=== PATIENT | male | born 1960 | race Caucasian/White ===

== ENCOUNTER 2018-01-29 13:44 | Emergency (ER) | payer MEDICAID ==
--- NOTE | 2018-01-29 16:22 | ED Physician Chart ---
ED Chief Complaint/HPI - Patient Information Date Seen:: 01/29/18 Time Seen:: 14:10 Chief Complaint:: Feet Redness History of Present Illness:: onset x one week of bilateral feet redness; pt denies trauma; pt's last tetanus shot: < 5 years; UTD; pt denies H/As, S/T, neck pain, C/P, SOB, Abd. Pain, A/N/V /D/C, fever, chills, or urinary s/s; pt denies foot pain, back pain, or hip/ knee pain; no gait changes Allergies:: Allergies Allergy/AdvReac Type Severity Reaction Status Date / Time No Known Allergies Allergy Verified 08/16/16 15:09 Vitals:: Vital Signs - 8 hr 01/29/18 14:12 Temp 99.4 F HR 91 RR 16 BP 118/61 O2 Sat % 98 Historian:: Patient, EMS Review:: Nurse's Note Reviewed, Old Chart Reviewed, EMS run form Reviewed ED Review of Systems - Review of Systems General/Constitutional: No fever, No chills, No weight loss, No weakness, No diaphoresis, No edema, No loss of appetite Skin: No skin lesions, No rash, No bruising Head: No headache, No light-headedness Eyes: No loss of vision, No pain, No diplopia ENT: No earache, No nasal drainage, No sore throat, No tinnitus Neck: No neck pain, No swelling, No thyromegaly, No stiffness, No mass noted Cardio Vascular: No chest pain, No palpitations, No PND, No orthopnea, No edema Pulmonary: No SOB, No cough, No sputum, No wheezing GI: No nausea, No vomiting, No diarrhea, No pain, No melena, No hematochezia, No constipation, No hematemesis G/U: No dysuria, No frequency, No hematuria, No nacturia Musculoskeletal: No bone or joint pain, No back pain, No muscle pain Endocrine: No polyuria, No polydipsia Psychiatric: No prior psych history, No depression, No anxiety, No suicidal ideation, No homicidal ideation, No auditory hallucination, No visual hallucination Hematopoietic: No bruising, No lymphadenopathy Allergic/Immuno: No urticaria, No angioedema Neurological: No syncope, No focal symptoms, No weakness, No paresthesia, No headache, No seizure, No dizziness, No confusion, No vertigo ED Past Medical History - Past Medical History Obtainable: Yes Past Medical History: No significant medical hx Family History: None Social History: Non Smoker, No Alcohol, No Drug Use, Single, Homeless Surgical History: None Psychiatricy History: None Medication: Reviewed Family Medical History - Family Member Mother History Unknown: Yes Ethnicity: Living Status: Unknown Hx Family Cancer: No Hx Family Coronary Artery Disease: No Hx Family Congestive Heart Failure: No Hx Family Hypertension: Yes Hx Family Stroke: No Hx Family Diabetes: No Hx Family Seizures: No Hx Family Dementia: No Hx Family AIDS: No Hx Family HIV: No Hx Family COPD: No Hx Family Hepatitis: No Hx Family Psychiatric Problems: No Hx Family Tuberculosis: No ED Physical Exam - Physical Examination General/Constitutional: Awake, Well-developed, well-nourished, Alert, No distress, GCS 15, Non-toxic appearing, Ambulatory Head: Atraumatic Eyes: Lids, conjuctiva normal, PERRL, EOMI Skin: Nl inspection, No rash, No skin lesions, No ecchymosis, Well hydrated, No lymphadenopathy Other Skin comments:: Bilateral Feet Cellulitis; no wounds; no FBs; good NV functions ENMT: External ears, nose nl, TM canals nl, Nasal exam nl, Lips, teeth, gums nl , Oropharynx nl, Tonsils nl Neck: Nontender, Full ROM w/o pain, No JVD, No nuchal rigidity, No bruit, No mass, No stridor Other Neck comments:: supple; no meningeal signs; no cervical tenderness; no bruits Respiratory: Nl effort/Exclusion, Clear to Auscultation, No Wheeze/Rhonchi/Rales Cardio Vascular: RRR, No murmur, gallop, rubs, NL S1 S2, Carotid/Femoral/Distal pulses equal bilaterally GI: No tenderness/rebounding/guarding, No organomegaly, No hernia, Normal BS's, Nondistended, No mass/bruits, No McBurney tenderness, Rectum exam nl Other GI comments:: no pulsatile masses : No CVA tenderness Extremities: No tenderness or effusion, Full ROM, normal strength in all extremities, No edema, Normal digits & nails Other Extremities comments:: Gait: WNL; good motor, tendon, and sensory functions; good NV functions Neuro/Psych: Alert/oriented, DTR's symmetric, Normal sensory exam, Normal motor strength, Judgement/insight normal, Mood normal, Normal gait, No focal deficits Misc: Normal back, No paraspinal tenderness ED Septic Shock - . Is Septic Shock (SBP<90, OR Lactate>4 mmol\L) present?: No - <6hrs of presentation: Vital Signs: Vital Signs - 8 hr 01/29/18 14:12 Temp 99.4 F HR 91 RR 16 BP 118/61 O2 Sat % 98 ED Reassessment (Disposition) - Reassessment Reassessment:: pt tolerated po fluids well in ER; pt is asymptomatic upon discharge Reassessment Condition:: Improved - Diagnosis Diagnosis:: Feet Cellulitis; Feet Redness; Localized Cellulitis - Aftercare/Follow up Instructions Aftercare/Follow-Up Instructions:: Counseled pt regarding lab results/diagnosis & need follow up, Refer to Discharge Instructions, Counseled pt & family regarding lab results/diagnosis & need follow up Medication Prescribed:: Rx: keflex 500mg po qid x 10 days; warm Compresses to both feet; Foot/ Cellulitis Care instructions - Patient Disposition Discharge/Transfer:: Home Condition at Disposition:: Stable, Improved (RTER prn if existing s/s reoccur and/or get worse and/or any other new s/s occur; take medications as prescribed ; ACIs given for all above Dx; refer to Senior Php Web Developer/Director College/Vascular Surgeon/ Chyron Operator MAK; F/U with PMD in one day or prn; RTER prn if concerned)
== END 2018-01-29 17:15 | disposition home or self-care (01) ==
LOC: ER 13:44
DX: L03.115 Cellulitis of right lower limb (principal); L03.116 Cellulitis of left lower limb; Z59.0 Homelessness
CPT/HCPCS: 99283; 96372; J0696; Z7502

== ENCOUNTER 2018-09-09 18:13 | Inpatient (IN) | payer MEDICAID ==
[2018-09-09 19:06] LABS: BASOPHILE ABSOLUTE 0.1 Th/cumm (0-0.2); EOSINOPHILE ABSOLUTE 0.1 Th/cmm (0.1-0.4); HEMOGLOBIN 11.6 gm/dL (12-16); MEAN CELL VOLUME 99.8 fl (80-99); MEAN CORPUSCULAR HEMOGLOBIN 33.1 pg (26.0-30.0); MEAN CORPUSCULAR HGB CONC 33.2 pg (28.0-36.0); MEAN PLATELET VOLUME 9.5 fl; NEUTROPHILE ABSOLUTE 3.3 Th/cmm (1.8-8.0); PLATELET COUNT 60 Th/cmm (150-400); RED BLOOD COUNT 3.51 Mil/cmm (4.30-5.70); RED CELL DISTRIBUTION WIDTH 12.5 % (11.5-20.0); WHITE BLOOD COUNT 6.5 Th/cmm (4.8-10.8)
[2018-09-09 19:12] LABS: % BASOPHILS 1.2 % (0.0-2.0); % LYMPHOCYTES 30.1 % (20.0-50.0); % MONOCYTES 15.9 % (2.0-10.0); % NEUTROPHILS 50.8 % (40.0-80.0)
[2018-09-09 19:22] LABS: ALBUMIN 3.6 gm/dL (4.2-5.5); ALKALINE PHOSPHATASE 127 U/L (34-104); AMYLASE SERUM 88 U/L (29-103); ANION GAP 12.9 (7.0-16.0); BILIRUBIN,TOTAL 0.8 mg/dL (0.3-1.0); BUN - UREA NITROGEN 13 mg/dL (7-25); CALCIUM SERUM 8.8 mg/dL (8.6-10.3); CARBON DIOXIDE 21.7 mEq/L (21.0-31.0); CHLORIDE 99 mEq/L (98-107); CREATININE - SERUM 0.8 mg/dL (0.7-1.3); GFR AFRICAN-AMERICAN > 60.0 ml/min (>90); GFR NON AFRICAN-AMERICAN > 60.0 ml/min; GLUCOSE 97 mg/dL (70-105); LIPASE 63 U/L (11-82); PHOSPHOROUS 2.9 mg/dL (2.5-5.0); POTASSIUM SERUM 3.6 mEq/L (3.5-5.1); SGOT 96 U/L (13-39); SGPT/ALT 47 U/L (7-52); SODIUM SERUM 130 mEq/L (136-145); TOTAL PROTEIN,SERUM 7.3 gm/dL (6.0-8.3)
[2018-09-09 20:48] LABS: AMPHETAMINE URINE NEGATIVE (NEGATIVE); BARBITURATES URINE NEGATIVE (NEGATIVE); BENZODIAZEPINES QUAL URINE NEGATIVE (NEGATIVE); CANNABINOID THC NEGATIVE (NEGATIVE); COCAINE METABOLITE QUAL URINE NEGATIVE (NEGATIVE); METHADONE URINE NEGATIVE (NEGATIVE); METHAMPHETAMINES QUAL URINE NEGATIVE (NEGATIVE); OPIATES (MORPHINE) QUAL. URINE NEGATIVE (NEGATIVE); PHENCYCLIDINE (PCP) URINE NEGATIVE (NEGATIVE); TRICYCLICS (TCA) QUAL. URINE NEGATIVE (NEGATIVE)
--- NOTE | 2018-09-09 20:53 | ED Physician Chart ---
ED Chief Complaint/HPI - Patient Information Date Seen:: 09/09/18 Time Seen:: 20:45 Chief Complaint:: diarhea History of Present Illness:: 57 yr old male with 3 day hx of diarhea Allergies:: Allergies Allergy/AdvReac Type Severity Reaction Status Date / Time No Known Allergies Allergy Verified 06/24/17 21:09 Vitals:: Vital Signs - 8 hr 09/09/18 18:39 Temp 98.1 F HR 92 RR 18 BP 117/60 O2 Sat % 100 ED Review of Systems - Review of Systems General/Constitutional: No fever Skin: No skin lesions Head: No headache Eyes: No loss of vision ENT: No earache Neck: No neck pain Cardio Vascular: No chest pain Pulmonary: No SOB GI: Diarrhea G/U: No dysuria Musculoskeletal: No bone or joint pain Endocrine: No polyuria Hematopoietic: No bruising Allergic/Immuno: No urticaria ED Past Medical History - Past Medical History Past Medical History: Other (etoh) Family Medical History - Family Member Mother History Unknown: Yes Ethnicity: Non- Hx Family Cancer: No Hx Family Coronary Artery Disease: No Hx Family Congestive Heart Failure: No Hx Family Hypertension: No Hx Family Stroke: No Hx Family Diabetes: No Hx Family Seizures: No Hx Family Dementia: No Hx Family AIDS: No Hx Family HIV: No Hx Family COPD: No Hx Family Hepatitis: No Hx Family Psychiatric Problems: No Hx Family Tuberculosis: No ED Physical Exam - Physical Examination General/Constitutional: Well-developed, well-nourished Head: Atraumatic Eyes: Lids, conjuctiva normal Skin: Nl inspection ENMT: External ears, nose nl Neck: Nontender Respiratory: Nl effort/Exclusion Cardio Vascular: RRR, No murmur, gallop, rubs GI: No tenderness/rebounding/guarding : No CVA tenderness Extremities: Full ROM Neuro/Psych: Alert/oriented Misc: Normal back ED Labs/Radiology/EKG Results - Lab Results Results: Laboratory Tests 09/09/18 09/09/18 18:45 18:45 WBC 6.5 RBC 3.51 L Hgb 11.6 L Hct 35.0 L MCV 99.8 H MCH 33.1 H MCHC Differential 33.2 RDW 12.5 Plt Count 60 L MPV 9.5 Add Manual Diff YES Neutrophils % 50.8 Lymphocytes % 30.1 Monocytes % 15.9 H Eosinophils % 2.0 Basophils % 1.2 Neutrophils (Manual) Not Reportable Sodium 130 L Potassium 3.6 Chloride 99 Carbon Dioxide 21.7 Anion Gap 12.9 BUN 13 Creatinine 0.8 Est GFR ( Amer) > 60.0 Est GFR (Non-Af Amer) > 60.0 BUN/Creatinine Ratio 16.3 Glucose 97 Calcium 8.8 Phosphorus 2.9 Magnesium 2.0 Total Bilirubin 0.8 AST 96 H ALT 47 Alkaline Phosphatase 127 H Total Protein 7.3 Albumin 3.6 L Globulin 3.7 Albumin/Globulin Ratio 1.0 Amylase 88 Lipase 63 Ethyl Alcohol 356 H ED Septic Shock - . Is Septic Shock (SBP<90, OR Lactate>4 mmol\L) present?: No - <6hrs of presentation: Vital Signs: Vital Signs - 8 hr 15/18 18:39 Temp 98.1 F HR 92 RR 18 BP 117/60 O2 Sat % 100 ED Reassessment (Disposition) - Reassessment Reassessment Condition:: Improved - Diagnosis Diagnosis:: diarhea - Patient Disposition Discharge/Transfer:: Home Condition at Disposition:: Improved
[2018-09-09 22:05] LABS: CHOLESTEROL 178 mg/dL (<200); HDL -HIGH DENSITY LIPOPROTEIN 86 mg/dL (23-92); TRIGLYCERIDES 64 mg/dL (<150)
[2018-09-09 23:18] VITALS: BP 101/59
[2018-09-10] MEDS: Sodium Chloride 0.9% 1,000 ML IV SCH ×3 (00:56→17:45)
[2018-09-10 05:10] LABS: % BASOPHILS 1.6 % (0.0-2.0); % LYMPHOCYTES 24.7 % (20.0-50.0); % MONOCYTES 12.9 % (2.0-10.0); % NEUTROPHILS 57.8 % (40.0-80.0); BASOPHILE ABSOLUTE 0.1 Th/cumm (0-0.2); EOSINOPHILE ABSOLUTE 0.2 Th/cmm (0.1-0.4); HEMATOCRIT 34.9 % (41.0-60); LYMPHOCYTE ABSOLUTE 1.4 Th/cmm (1.5-3.0); MEAN CELL VOLUME 98.8 fl (80-99); MEAN CORPUSCULAR HGB CONC 34.4 pg (28.0-36.0); MEAN PLATELET VOLUME 9.2 fl; MONOCYTE ABSOLUTE 0.7 Th/cmm (0.3-1.0); NEUTROPHILE ABSOLUTE 3.2 Th/cmm (1.8-8.0); PLATELET COUNT 55 Th/cmm (150-400); RED BLOOD COUNT 3.54 Mil/cmm (4.30-5.70); RED CELL DISTRIBUTION WIDTH 12.4 % (11.5-20.0); WHITE BLOOD COUNT 5.6 Th/cmm (4.8-10.8)
[2018-09-10] MEDS: metroNIDAZOLE 500mg/NS 100mL 500 MG/100 ML BAG IV SCH ×3 (05:28→21:30)
[2018-09-10 05:35] LABS: ANION GAP 12.8 (7.0-16.0); BUN - UREA NITROGEN 10 mg/dL (7-25); CALCIUM SERUM 8.2 mg/dL (8.6-10.3); CARBON DIOXIDE 22.5 mEq/L (21.0-31.0); CHLORIDE 106 mEq/L (98-107); CHOLESTEROL 169 mg/dL (<200); CREATININE - SERUM 0.5 mg/dL (0.7-1.3); GFR AFRICAN-AMERICAN > 60.0 ml/min (>90); GFR NON AFRICAN-AMERICAN > 60.0 ml/min; GLUCOSE 87 mg/dL (70-105); HDL -HIGH DENSITY LIPOPROTEIN 80 mg/dL (23-92); POTASSIUM SERUM 3.3 mEq/L (3.5-5.1); SODIUM SERUM 138 mEq/L (136-145); TRIGLYCERIDES 41 mg/dL (<150)
[2018-09-10 12:43] LABS: CHOLESTEROL 173 mg/dL (<200); HDL -HIGH DENSITY LIPOPROTEIN 79 mg/dL (23-92); TRIGLYCERIDES 42 mg/dL (<150)
--- NOTE | 2018-09-10 14:19 | Consultation ---
Consult Note - Consult Note Service Date: 09/10/18 Referring Physician: Jordyn Odom Consult Note: PHYSICIAN Consultation Note: Date of Admission: 09/09/18 Purpose of Consultation: Diarrhea, AGE. Chief Complaint: Patient COLBY THOMAS was admitted to location Medical/ Surgical Unit I with DIARRHEA, HYPONATREMIA. History of Present Illness: 56-year-old male with no significant past medical history of presented for diarrhea. He stated that he was [place] [address] , [facility] were called and he was offered to go to jail or Hospital. He chose to go to the hospital. He had developed diarrhea, and it is improved now. ID consult was called for evaluation and management. Past Medical History: Alcohol abuse. Allergies Allergy/AdvReac Type Severity Reaction Status Date / Time No Known Allergies Allergy Verified 09/10/18 13:56 Vital Signs Temp 98.8 F 09/10/18 11:47 Pulse 70 09/10/18 11:47 Resp 18 09/10/18 11:47 BP 118/77 09/10/18 11:47 Pulse Ox 99 09/10/18 11:47 Intake & Output 09/09/18 09/10/18 09/10/18 18:59 06:59 18:59 Intake Total 100 1000 Output Total 300 Balance -200 1000 Weight (lbs) 66.224 kg 66.224 kg Intake: Intake, IV Amount 100 1000 Sodium Chloride 0.9% 1, 1000 000 ml @ 125 mls/hr IV . Q8H [facility] Rx#:[id number] metroNIDAZOLE 500mg/NS 100 100mL 500 mg In 100 ml @ 100 mls/hr IV Q8HR [facility] Rx #:[id number] Output: Urine 300 Other: Weight Source Patient stated [facility] Laboratory Results - last 24 hr 09/09/18 09/09/18 09/09/18 18:45 18:45 18:45 WBC 6.5 RBC 3.51 L Hgb 11.6 L Hct 35.0 L MCV 99.8 H MCH 33.1 H MCHC Differential 33.2 RDW 12.5 Plt Count 60 L MPV 9.5 Add Manual Diff YES Neutrophils % 50.8 Lymphocytes % 30.1 Monocytes % 15.9 H Eosinophils % 2.0 Basophils % 1.2 Neutrophils (Manual) Not Reportable Sodium 130 L Potassium 3.6 Chloride 99 Carbon Dioxide 21.7 Anion Gap 12.9 BUN 13 Creatinine 0.8 Est GFR ( Amer) > 60.0 Est GFR (Non-Af Amer) > 60.0 BUN/Creatinine Ratio 16.3 Glucose 97 Calcium 8.8 Phosphorus 2.9 Magnesium 2.0 Total Bilirubin 0.8 AST 96 H ALT 47 Alkaline Phosphatase 127 H Total Protein 7.3 Albumin 3.6 L Globulin 3.7 Albumin/Globulin Ratio 1.0 Triglycerides 64 Cholesterol 178 LDL Cholesterol Direct 65 L HDL Cholesterol 86 Amylase 88 Lipase 63 TSH Urine Opiates Screen Urine Methadone Screen Ur Barbiturates Screen Ur Tricyclics Screen Ur Phencyclidine Scrn Amphetamines Screen U Methamphetamines Scrn U Benzodiazepines Scrn U Cocaine Metab Screen U Cannabinoids Screen Ethyl Alcohol 356 H 09/09/18 09/10/18 09/10/18 20:25 05:00 05:00 WBC 5.6 RBC 3.54 L Hgb 12.0 Hct 34.9 L MCV 98.8 MCH 34.0 H MCHC Differential 34.4 RDW 12.4 Plt Count 55 L MPV 9.2 Add Manual Diff Neutrophils % 57.8 Lymphocytes % 24.7 Monocytes % 12.9 H Eosinophils % 3.0 Basophils % 1.6 Neutrophils (Manual) Sodium 138 Potassium 3.3 L Chloride 106 Carbon Dioxide 22.5 Anion Gap 12.8 BUN 10 Creatinine 0.5 L Est GFR ( Amer) > 60.0 Est GFR (Non-Af Amer) > 60.0 BUN/Creatinine Ratio 20.0 Glucose 87 Calcium 8.2 L Phosphorus Magnesium Total Bilirubin AST ALT Alkaline Phosphatase Total Protein Albumin Globulin Albumin/Globulin Ratio Triglycerides 41 Cholesterol 169 LDL Cholesterol Direct 62 L HDL Cholesterol 80 Amylase Lipase TSH Urine Opiates Screen NEGATIVE Urine Methadone Screen NEGATIVE Ur Barbiturates Screen NEGATIVE Ur Tricyclics Screen NEGATIVE Ur Phencyclidine Scrn NEGATIVE Amphetamines Screen NEGATIVE U Methamphetamines Scrn NEGATIVE U Benzodiazepines Scrn NEGATIVE U Cocaine Metab Screen NEGATIVE U Cannabinoids Screen NEGATIVE Ethyl Alcohol 09/10/18 09/10/18 05:00 12:29 WBC RBC Hgb Hct MCV MCH MCHC Differential RDW Plt Count MPV Add Manual Diff Neutrophils % Lymphocytes % Monocytes % Eosinophils % Basophils % Neutrophils (Manual) Sodium Potassium Chloride Carbon Dioxide Anion Gap BUN Creatinine Est GFR ( Amer) Est GFR (Non-Af Amer) BUN/Creatinine Ratio Glucose Calcium Phosphorus Magnesium Total Bilirubin AST ALT Alkaline Phosphatase Total Protein Albumin Globulin Albumin/Globulin Ratio Triglycerides 42 Cholesterol 173 LDL Cholesterol Direct 64 L HDL Cholesterol 79 Amylase Lipase TSH 3.19 Urine Opiates Screen Urine Methadone Screen Ur Barbiturates Screen Ur Tricyclics Screen Ur Phencyclidine Scrn Amphetamines Screen U Methamphetamines Scrn U Benzodiazepines Scrn U Cocaine Metab Screen U Cannabinoids Screen Ethyl Alcohol Home Medication Medication Instructions Recorded Type NK [No Home Meds] 04/16/17 History NK [No Home Meds] 09/09/18 History Current Medications Generic Name Dose Route Start Last Admin Trade Name Jeremy PRN Reason Stop Dose Admin Acetaminophen 650 mg 09/09/18 21:41 09/10/18 14:06 Tylenol PO 11/08/18 21:40 650 mg Q4HR PRN Administration PAIN/FEVER Metronidazole 500 mg in 100 mls @ 100 mls/hr 09/10/18 05:00 09/10/18 12:07 Flagyl IV 11/09/18 04:59 100 mls/hr Q8HR [facility] Administration Sodium Chloride 1,000 mls @ 125 mls/hr 09/09/18 21:45 09/10/18 09:04 Nacl 0.9% IV 11/08/18 21:44 125 mls/hr .Q8H [facility] Administration Review of Systems: A 12 point ROS was reviewed with the pertinent positive and negatives noted in the HPI. General/Constitutional: No fever Skin: No skin lesions Head: No headache Eyes: Notable diplopia and no photophobia. ENT: No earache, no ear discharge Neck: No neck pain Cardio Vascular: No chest pain, no palpitation. No leg edema or swelling Pulmonary: No SOB, no cough. No wheezing. GI: Presented with Diarrhea, no nausea no vomiting no constipation no diarrhea no G/U: No dysuria, no hematuria Musculoskeletal: No bone or joint pain Endocrine: No polyuria Hematopoietic: No bruising Allergic/Immuno: No urticaria. ART THERAPY CERTIFIED SUPERVISOR: No headache, no dizziness, no focal process. No seizure. Social History Homeless. Smoking Status Current every day smoker Drug Use No Alcohol Use No Family Medical History Unknown. Physical Exam: General: A febrile, Acute distress. HEENT: Head: Normocephalic, atraumatic. Oral cavity: Moist, pink tongue. Neck: Supple, no JVD or bruit. No Use of accessory neck muscles. Cardio: S1 and S2 within normal limits. No murmur no gallop. Respiratory: Vesicular breath sound. No crackles no wheezing. Abdominal: Soft, nontender nondistended bowel sounds present Genital/Urinary: Deferred Extremities: No cyanosis, no clubbing no edema. There is a dry skin. Neurological: Alert, awake, oriented 3. Assessment: 1. Diarrhea, improved. Acute gastroenteritis improved. Might be viral. 2. Alcohol abuse. Plan: As patient's diarrhea has improved. No further intervention. Continue Flagyl.. Follow-up as outpatient basis. Thank you, Dr. Odom, for involving me in taking care of this patient Signed, Stanley Boogie M.D. [id number]
[2018-09-10] MEDS ORDERED: Potassium Chloride 20 mEq ER Tab PO ONE (14:59)
--- NOTE | 2018-09-10 18:42 | History & Physical ---
ADMIT DATE: 09/10/2018 CHIEF COMPLAINT: Diarrhea, trouble with ambulation. HISTORY OF PRESENT ILLNESS: This is a 57-year-old homeless male who was admitted to the med/surg unit. According to the patient, a few days ago when it was raining hard, the patient states that his socks were drenched with water and he started to develop blisters and the patient states that he has been having trouble walking due to the blisters that he develops. The patient also complains of having diarrhea as well. FAMILY HISTORY: None per patient. SOCIAL HISTORY: The patient is a chronic alcoholic. Denies any illicit drug usage. The patient states that he smokes cigarettes when he gets a chance. PAST SURGICAL HISTORY: None per patient. FAMILY HISTORY: Noncontributory. REVIEW OF SYSTEMS: GENERAL: Denies fevers and chills. CARDIOVASCULAR: Denies chest pain. RESPIRATORY: Denies shortness of breath. GASTROINTESTINAL: Denies nausea, vomiting, abdominal pain. GENITOURINARY: Denies increased frequency or dysuria. NEUROLOGIC: Denies headaches, seizures, or syncope. All systems are reviewed and negative. PHYSICAL EXAMINATION: GENERAL: The patient is well developed, well nourished, in no apparent distress, appears disheveled. VITAL SIGNS: Temperature 98.8, heart rate 70, blood pressure 118/77, respiration 18, O2 99%. HEENT: Head; normocephalic, atraumatic. NECK: Supple. No mass. LUNGS: Clear bilaterally. HEART: Regular rate and rhythm. ABDOMEN: Soft, nontender. EXTREMITIES: The patient's bilateral feet noted with some blisters and some excoriations. LABORATORY DATA: WBC 5.6, H and H 12.0 and 34.9, platelets 55. Sodium 138, potassium 3.3, chloride 106, BUN 10, creatinine 0.5. ASSESSMENT: Diarrhea, hyponatremia, homelessness, bilateral foot pain. PLAN: We will admit the patient to the med-surg unit. We will get Infectious Disease on the case. We will send occult for blood, stool culture, also C. diff. Keep the patient on IV fluids for hydration, also empiric IV antibiotics of Flagyl. We will continue to follow this patient. JOB# [id number]
[2018-09-11] MEDS: Sodium Chloride 0.9% 1,000 ML IV SCH (05:57)
[2018-09-11] MEDS: metroNIDAZOLE 500mg/NS 100mL 500 MG/100 ML BAG IV SCH (06:12)
--- NOTE | 2018-09-11 11:48 | Internal Medicine Prog Note ---
Internal Medicine Subjective - Subjective Patient seen and examined:: other (labs reviewed, c/o blister justin feet + diarrhea) Patient is:: awake Patient Complaints of:: other (feet pain ) Per staff patient has:: no adverse event Internal Medicine Objective - Results Result Diagrams: 09/10/18 05:00 09/10/18 05:00 Recent Labs: Laboratory Last Values WBC 5.6 Th/cmm (4.8-10.8) 09/10/18 05:00 RBC 3.54 Mil/cmm (4.30-5.70) L 09/10/18 05:00 Hgb 12.0 gm/dL (12-16) 09/10/18 05:00 Hct 34.9 % (41.0-60) L 09/10/18 05:00 MCV 98.8 fl (80-99) 09/10/18 05:00 MCH 34.0 pg (26.0-30.0) H 09/10/18 05:00 MCHC Differential 34.4 pg (28.0-36.0) 09/10/18 05:00 RDW 12.4 % (11.5-20.0) 09/10/18 05:00 Plt Count 55 Th/cmm (150-400) L 09/10/18 05:00 MPV 9.2 fl 09/10/18 05:00 Add Manual Diff YES 09/09/18 18:45 Neutrophils % 57.8 % (40.0-80.0) 09/10/18 05:00 Lymphocytes % 24.7 % (20.0-50.0) 09/10/18 05:00 Monocytes % 12.9 % (2.0-10.0) H 09/10/18 05:00 Eosinophils % 3.0 % (0.0-5.0) 09/10/18 05:00 Basophils % 1.6 % (0.0-2.0) 09/10/18 05:00 Neutrophils (Manual) Not Reportable 09/09/18 18:45 Sodium 138 mEq/L (136-145) 09/10/18 05:00 Potassium 3.3 mEq/L (3.5-5.1) L 09/10/18 05:00 Chloride 106 mEq/L (98-107) 09/10/18 05:00 Carbon Dioxide 22.5 mEq/L (21.0-31.0) 09/10/18 05:00 Anion Gap 12.8 (7.0-16.0) 09/10/18 05:00 BUN 10 mg/dL (7-25) 09/10/18 05:00 Creatinine 0.5 mg/dL (0.7-1.3) L 09/10/18 05:00 Est GFR ( Amer) > 60.0 ml/min (>90) 09/10/18 05:00 Est GFR (Non-Af Amer) > 60.0 ml/min 09/10/18 05:00 BUN/Creatinine Ratio 20.0 09/10/18 05:00 Glucose 87 mg/dL (70-105) 09/10/18 05:00 Calcium 8.2 mg/dL (8.6-10.3) L 09/10/18 05:00 Phosphorus 2.9 mg/dL (2.5-5.0) 09/09/18 18:45 Magnesium 2.0 mg/dL (1.9-2.7) 09/09/18 18:45 Total Bilirubin 0.8 mg/dL (0.3-1.0) 09/09/18 18:45 AST 96 U/L (13-39) H 09/09/18 18:45 ALT 47 U/L (7-52) 09/09/18 18:45 Alkaline Phosphatase 127 U/L (34-104) H 09/09/18 18:45 Total Protein 7.3 gm/dL (6.0-8.3) 09/09/18 18:45 Albumin 3.6 gm/dL (4.2-5.5) L 09/09/18 18:45 Globulin 3.7 gm/dL 09/09/18 18:45 Albumin/Globulin Ratio 1.0 (1.0-1.8) 09/09/18 18:45 Triglycerides 42 mg/dL (<150) 09/10/18 12:29 Cholesterol 173 mg/dL (<200) 09/10/18 12:29 LDL Cholesterol Direct 64 mg/dL (75-193) L 09/10/18 12:29 HDL Cholesterol 79 mg/dL (23-92) 09/10/18 12:29 Amylase 88 U/L (29-103) 09/09/18 18:45 Lipase 63 U/L (11-82) 09/09/18 18:45 TSH 3.19 uIU/ml (0.34-5.60) 09/10/18 05:00 Stool Occult Blood NEGATIVE (NEGATIVE) 09/10/18 19:45 Urine Opiates Screen NEGATIVE (NEGATIVE) 09/09/18 20:25 Urine Methadone Screen NEGATIVE (NEGATIVE) 09/09/18 20:25 Ur Barbiturates Screen NEGATIVE (NEGATIVE) 09/09/18 20:25 Ur Tricyclics Screen NEGATIVE (NEGATIVE) 09/09/18 20:25 Ur Phencyclidine Scrn NEGATIVE (NEGATIVE) 09/09/18 20:25 Amphetamines Screen NEGATIVE (NEGATIVE) 09/09/18 20:25 U Methamphetamines Scrn NEGATIVE (NEGATIVE) 09/09/18 20:25 U Benzodiazepines Scrn NEGATIVE (NEGATIVE) 09/09/18 20:25 U Cocaine Metab Screen NEGATIVE (NEGATIVE) 09/09/18 20:25 U Cannabinoids Screen NEGATIVE (NEGATIVE) 09/09/18 20:25 Ethyl Alcohol 356 mg/dL (0-10) H 09/09/18 18:45 - Physical Exam Vitals and I&O: Vital Signs Temp 98.6 F 09/11/18 10:40 Pulse 65 09/11/18 10:40 Resp 18 09/11/18 10:40 BP 141/68 09/11/18 10:40 Pulse Ox 98 09/11/18 10:40 Intake & Output 09/10/18 09/11/18 09/11/18 18:59 06:59 18:59 Intake Total 2900 1100 350 Output Total 550 450 Balance 2900 550 -100 Weight (lbs) 62.596 kg 63.73 kg 63.503 kg Intake: Intake, IV Amount 2100 1100 Sodium Chloride 0.9% 1, 2000 1000 000 ml @ 125 mls/hr IV . Q8H [facility] Rx#:[id number] metroNIDAZOLE 500mg/NS 100 100 100mL 500 mg In 100 ml @ 100 mls/hr IV Q8HR [facility] Rx #:[id number] Oral 800 350 Output: Urine 550 450 Other: # Voids 4 2 # Bowel Movements 1 1 Stool Characteristics Soft Liquid Green Brown Weight Source Bedscale Bedscale Bedscale Active Medications: Current Medications Acetaminophen (Tylenol) 650 mg PO Q4HR PRN PRN Reason: PAIN/FEVER Stop: 11/08/18 21:40 Last Admin: 09/11/18 00:11 Dose: 650 mg Metronidazole (Flagyl) 500 mg in 100 mls @ 100 mls/hr IV Q8HR [facility] Stop: 11/09/18 04:59 Last Admin: 09/11/18 06:12 Dose: 100 mls/hr Sodium Chloride (Nacl 0.9%) 1,000 mls @ 125 mls/hr IV .Q8H [facility] Stop: 11/08/18 21:44 Last Admin: 09/11/18 05:57 Dose: 125 mls/hr General: alert HEENT: NC/AT Neck: Supple Lungs: CTAB Cardiovascular: Normal S1, Normal S2 Abdomen: soft, non-tender Extremities: pain, other (blisters on justin foot) Neurological: no change - Procedures Procedures: Procedures Procedure Code Date INJECT/INFUSE NEC 99.29 07/14/14 THER/PROPH/DIAG INJ, SC/IM [id number] 04/11/08 Internal Medicine Assmt/Plan - Assessment Assessment: diarrhea hyponatremia justin foot pain homelessness - Plan Plan: ID eval pain management iv antibiotics iv fluids
== END 2018-09-11 11:45 | disposition home or self-care (01) | DRG 249 ==
LOC: ER 18:13 → MERGE 21:20 → MSI 21:20
PROVIDERS: ADMIT Internal Medicine; ATTEND Internal Medicine
DX: K52.9 Noninfective gastroenteritis and colitis, unspecified (principal); E87.1 Hypo-osmolality and hyponatremia; F10.10 Alcohol abuse, uncomplicated; F17.210 Nicotine dependence, cigarettes, uncomplicated; Y90.8 Blood alcohol level of 240 mg/100 ml or more; M79.672 Pain in left foot; M79.671 Pain in right foot; Z59.0 Homelessness
CPT/HCPCS: 36415-UA; 80048-TC; 80053-TC; 80061-TC; 80307; 80320-TC; 82150-TC; 82270-TC; 83036-90; 83690-TC; 83735-TC; 84100-TC; 84443-TC; 85007-TC; 85025-TC; 87046-90; 87230-TC; 90799; J7030; Z7610

== ENCOUNTER 2019-06-17 14:56 | Emergency (ER) | payer MEDICAID ==
[2019-06-17] MEDS: Sodium Chloride 0.9% 1,000 ML IV ONE (16:09)
[2019-06-17 16:11] LABS: BASOPHILE ABSOLUTE 0.1 Th/cumm (0-0.2); EOSINOPHILE ABSOLUTE 0.1 Th/cmm (0.1-0.4); MONOCYTE ABSOLUTE 0.5 Th/cmm (0.3-1.0); RED CELL DISTRIBUTION WIDTH 12.6 % (11.5-20.0)
[2019-06-17 16:13] LABS: % BASOPHILS 1.5 % (0.0-2.0); % EOSINOPHILS 1.4 % (0.0-5.0); % LYMPHOCYTES 43.5 % (20.0-50.0); % MONOCYTES 11.1 % (2.0-10.0); % NEUTROPHILS 42.5 % (40.0-80.0); HEMATOCRIT 35.2 % (41.0-60); LYMPHOCYTE ABSOLUTE 1.7 Th/cmm (1.5-3.0); MEAN CELL VOLUME 99.3 fl (80-99); MEAN CORPUSCULAR HEMOGLOBIN 33.7 pg (26.0-30.0); MEAN CORPUSCULAR HGB CONC 33.9 pg (28.0-36.0); NEUTROPHILE ABSOLUTE 1.7 Th/cmm (1.8-8.0); RED BLOOD COUNT 3.55 Mil/cmm (4.30-5.70); WHITE BLOOD COUNT 4.1 Th/cmm (4.8-10.8)
[2019-06-17 16:18] LABS: PLATELET COUNT 30 Th/cmm (150-400)
[2019-06-17 16:25] LABS: INR 1.02 (0.5-1.4)
[2019-06-17 16:28] LABS: ALB/GLOB RATIO 1.1 (1.0-1.8); ALBUMIN 3.9 gm/dL (4.2-5.5); ALKALINE PHOSPHATASE 97 U/L (34-104); ANION GAP 17.1 (7.0-16.0); BILIRUBIN,TOTAL 1.3 mg/dL (0.3-1.0); BUN - UREA NITROGEN 6 mg/dL (7-25); CALCIUM SERUM 9.4 mg/dL (8.6-10.3); CARBON DIOXIDE 20.5 mEq/L (21.0-31.0); CHLORIDE 100 mEq/L (98-107); CHOLESTEROL 194 mg/dL (<200); CREATININE - SERUM 0.6 mg/dL (0.7-1.3); CREATININE KINASE 290 U/L (30-223); GFR AFRICAN-AMERICAN > 60.0 ml/min (>90); GFR NON AFRICAN-AMERICAN > 60.0 ml/min; GLUCOSE 89 mg/dL (70-105); HDL -HIGH DENSITY LIPOPROTEIN 91 mg/dL (23-92); POTASSIUM SERUM 3.6 mEq/L (3.5-5.1); SGOT 163 U/L (13-39); SGPT/ALT 70 U/L (7-52); SODIUM SERUM 134 mEq/L (136-145); TOTAL PROTEIN,SERUM 7.4 gm/dL (6.0-8.3); TRIGLYCERIDES 57 mg/dL (<150)
[2019-06-17 16:29] LABS: DDIMER QUANT 613 ng/mL (100-400)
[2019-06-17 17:00] LABS: INR 1.02 (0.5-1.4)
--- NOTE | 2019-06-17 17:18 | ED Physician Chart ---
ED Chief Complaint/HPI - Patient Information Date Seen:: 06/17/19 Time Seen:: 15:00 Chief Complaint:: ALOC History of Present Illness:: onset x one hour of ALOC and AMS which resolved upon ER arrival; pt's last ETOH beverage: 2 hours ago; no report of/pt denies trauma, LOC, SIs, decreased activity, visual or gait changes, weakness, dizziness, paresthesias, vertigo, H/ As, neck pain, S/T, E/As, cough, C/P, SOB, Abd. Pain, A/N/V/D/C, fever, chills, bleeding, or urinary s/s; pt is eating and urinating well; pt's last tetanus shot: < 5 years; UTD; pt last urinated one hour [employer] Allergies:: Allergies Allergy/AdvReac Type Severity Reaction Status Date / Time No Known Allergies Allergy Verified 09/10/18 13:56 Vitals:: Vital Signs - 8 hr 06/17/19 06/17/19 15:08 15:27 Temp 98.1 F 98.1 F HR 86 84 RR 18 18 BP 118/66 112/70 O2 Sat % 94 94 Historian:: Patient, EMS Review:: Nurse's Note Reviewed, Old Chart Reviewed, EMS run form Reviewed ED Review of Systems - Review of Systems General/Constitutional: No fever, No chills, No weight loss, No weakness, No diaphoresis, No edema, No loss of appetite Skin: No skin lesions, No rash, No bruising Head: No headache, No light-headedness Eyes: No loss of vision, No pain, No diplopia ENT: No earache, No nasal drainage, No sore throat, No tinnitus Neck: No neck pain, No swelling, No thyromegaly, No stiffness, No mass noted Cardio Vascular: No chest pain, No palpitations, No PND, No orthopnea, No edema Pulmonary: No SOB, No cough, No sputum, No wheezing GI: No nausea, No vomiting, No diarrhea, No pain, No melena, No hematochezia, No constipation, No hematemesis G/U: No dysuria, No frequency, No hematuria, No nacturia Musculoskeletal: No bone or joint pain, No back pain, No muscle pain Endocrine: No polyuria, No polydipsia Psychiatric: No prior psych history, No depression, No anxiety, No suicidal ideation, No homicidal ideation, No auditory hallucination, No visual hallucination Hematopoietic: No bruising, No lymphadenopathy Allergic/Immuno: No urticaria, No angioedema Neurological: No syncope, No focal symptoms, No weakness, No paresthesia, No headache, No seizure, No dizziness, No confusion, No vertigo ED Past Medical History - Past Medical History Obtainable: Yes Past Medical History: PUD/GERD Family History: None Social History: Smoker, Alcohol, No Drug Use, Single, Homeless Surgical History: None Psychiatricy History: None Medication: Reviewed Family Medical History - Family Member Mother History Unknown: Yes Ethnicity: Non- Hx Family Cancer: No Hx Family Coronary Artery Disease: No Hx Family Congestive Heart Failure: No Hx Family Hypertension: No Hx Family Stroke: No Hx Family Diabetes: No Hx Family Seizures: No Hx Family Dementia: No Hx Family AIDS: No Hx Family HIV: No Hx Family COPD: No Hx Family Hepatitis: No Hx Family Psychiatric Problems: No Hx Family Tuberculosis: No ED Physical Exam - Physical Examination General/Constitutional: Awake, Well-developed, well-nourished, Alert, No distress, GCS 15, Non-toxic appearing, Ambulatory Head: Atraumatic Eyes: Lids, conjuctiva normal, PERRL, EOMI Skin: Nl inspection, No rash, No skin lesions, No ecchymosis, Well hydrated, No lymphadenopathy Other Skin comments:: + LE Cellulitis; L>R; good motor and sensory functions; no septic joints; good NV functions; no FBs ENMT: External ears, nose nl, TM canals nl, Nasal exam nl, Lips, teeth, gums nl , Oropharynx nl, Tonsils nl Neck: Nontender, Full ROM w/o pain, No JVD, No nuchal rigidity, No bruit, No mass, No stridor Other Neck comments:: supple; no meningeal signs; no cervical tenderness; no bruits Respiratory: Nl effort/Exclusion, Clear to Auscultation, No Wheeze/Rhonchi/Rales Cardio Vascular: RRR, No murmur, gallop, rubs, NL S1 S2, Carotid/Femoral/Distal pulses equal bilaterally GI: No tenderness/rebounding/guarding, No organomegaly, No hernia, Normal BS's, Nondistended, No mass/bruits, No McBurney tenderness, Rectum exam nl Other GI comments:: no pulsatile masses : No CVA tenderness Extremities: No tenderness or effusion, Full ROM, normal strength in all extremities, No edema, Normal digits & nails Neuro/Psych: Alert/oriented, DTR's symmetric, Normal sensory exam, Normal motor strength, Judgement/insight normal, Mood normal, Normal gait, No focal deficits Other Neuro/Psych comments:: no focal signs Misc: Normal back, No paraspinal tenderness ED Labs/Radiology/EKG Results - Lab Results Results: Laboratory Tests 06/17/19 06/17/19 06/17/19 15:50 15:50 15:50 WBC 4.1 L RBC 3.55 L Hgb 12.0 Hct 35.2 L MCV 99.3 H MCH 33.7 H MCHC Differential 33.9 RDW 12.6 Plt Count 30 L MPV 9.9 Neutrophils % 42.5 Lymphocytes % 43.5 Monocytes % 11.1 H Eosinophils % 1.4 Basophils % 1.5 PT 10.6 INR 1.02 PTT (Actin FS) D-Dimer 613 H Sodium 134 L Potassium 3.6 Chloride 100 Carbon Dioxide 20.5 L Anion Gap 17.1 H BUN 6 L Creatinine 0.6 L Est GFR ( Amer) > 60.0 Est GFR (Non-Af Amer) > 60.0 BUN/Creatinine Ratio 10.0 Glucose 89 Whole Bld Lactic Acid Calcium 9.4 Total Bilirubin 1.3 H AST 163 H ALT 70 H Alkaline Phosphatase 97 Creatine Kinase 290 H Troponin I B-Natriuretic Peptide Total Protein 7.4 Albumin 3.9 L Globulin 3.5 Albumin/Globulin Ratio 1.1 Triglycerides 57 Cholesterol 194 LDL Cholesterol Direct 61 L HDL Cholesterol 91 Ethyl Alcohol 06/17/19 06/17/19 06/17/19 15:50 15:50 15:50 WBC RBC Hgb Hct MCV MCH MCHC Differential RDW Plt Count MPV Neutrophils % Lymphocytes % Monocytes % Eosinophils % Basophils % PT 10.6 INR 1.02 PTT (Actin FS) 27.5 D-Dimer Sodium Potassium Chloride Carbon Dioxide Anion Gap BUN Creatinine Est GFR ( Amer) Est GFR (Non-Af Amer) BUN/Creatinine Ratio Glucose Whole Bld Lactic Acid Calcium Total Bilirubin AST ALT Alkaline Phosphatase Creatine Kinase Troponin I 0.01 B-Natriuretic Peptide 21.9 Total Protein Albumin Globulin Albumin/Globulin Ratio Triglycerides Cholesterol LDL Cholesterol Direct HDL Cholesterol Ethyl Alcohol 06/17/19 06/17/19 15:50 15:50 WBC RBC Hgb Hct MCV MCH MCHC Differential RDW Plt Count MPV Neutrophils % Lymphocytes % Monocytes % Eosinophils % Basophils % PT INR PTT (Actin FS) D-Dimer Sodium Potassium Chloride Carbon Dioxide Anion Gap BUN Creatinine Est GFR ( Amer) Est GFR (Non-Af Amer) BUN/Creatinine Ratio Glucose Whole Bld Lactic Acid 2.12 H* Calcium Total Bilirubin AST ALT Alkaline Phosphatase Creatine Kinase Troponin I B-Natriuretic Peptide Total Protein Albumin Globulin Albumin/Globulin Ratio Triglycerides Cholesterol LDL Cholesterol Direct HDL Cholesterol Ethyl Alcohol 383 H Comments:: Reviewed - Radiology Results Comments:: deferred by pt - EKG Interpretations EKG Time:: 15:54 Rate & Rhythm: 82; NSR Comments:: non-specific st-t changes ED Septic Shock - . Is Septic Shock (SBP<90, OR Lactate>4 mmol\L) present?: No - <6hrs of presentation: Vital Signs: Vital Signs - 8 hr 06/17/19 06/17/19 15:08 15:27 Temp 98.1 F 98.1 F HR 86 84 RR 18 18 BP 118/66 112/70 O2 Sat % 94 94 ED Reassessment (Disposition) - Reassessment Reassessment:: pt refused further evaluation and treatment; pt chose to sign out AMA; pt tolerated po fluids well in ER; pt is asymptomatic upon discharge/AMA Reassessment Condition:: Improved - Diagnosis Diagnosis:: ALOC; AMS; Alcohol Intoxication; Sepsis; Cellulitis; Leukopenia; Elevated Lactic Acid; Lactic Acidosis; Hyponatremia; Dehydration; Alcohol Abuse; Hypoalbuminemia; Elevated LFTs; Alcoholic Hepatitis; Cirrhosis; Anemia; Elevated D-Dimer; Alcohol Withdrawal Syndrome - Aftercare/Follow up Instructions Aftercare/Follow-Up Instructions:: Counseled pt regarding lab results/diagnosis & need follow up, Refer to Discharge Instructions, Counseled pt & family regarding lab results/diagnosis & need follow up Medication Prescribed:: Rx: Keflex 500mg po qid x 10 days; Neosporin Ointment bid x 14 days; Warm Compresses/Heating Pads to affected areas - Patient Disposition Discharge/Transfer:: Against Medical Advice Condition at Disposition:: Stable, Improved (RTER prn if existing s/s reoccur and/or get worse and/or any other new s/s occur; ACIs given for all above Dx; Refer to [facility] MAK; Refer to GI Specialist/Psychiatrist/Learning Designer MAK; F/U with PMD Today or prn; RTER prn if concerned)
== END 2019-06-17 17:03 | disposition left against medical advice (07) ==
LOC: ER 14:56
DX: A41.9 Sepsis, unspecified organism (principal); F10.129 Alcohol abuse with intoxication, unspecified; E87.1 Hypo-osmolality and hyponatremia; E86.0 Dehydration; L03.116 Cellulitis of left lower limb; L03.115 Cellulitis of right lower limb; D72.819 Decreased white blood cell count, unspecified; E87.2 Acidosis; R94.5 Abnormal results of liver function studies; D64.9 Anemia, unspecified; K70.30 Alcoholic cirrhosis of liver without ascites; R79.89 Other specified abnormal findings of blood chemistry; K21.9 Gastro-esophageal reflux disease without esophagitis; F17.200 Nicotine dependence, unspecified, uncomplicated; Z59.0 Homelessness; Y90.8 Blood alcohol level of 240 mg/100 ml or more
CPT/HCPCS: 99284; 96365; 94760; 93005; 84484; 83880; 36415; 85379; 83605; 85025; 85610 ×2; 85730; 80320; 82550; 82553; 80053; 80061; 87040 ×2; 90715; J3370; J7030

== ENCOUNTER 2019-06-20 00:58 | Inpatient (IN) | payer MEDICAID ==
--- NOTE | 2019-06-20 01:28 | ED Physician Chart ---
ED Chief Complaint/HPI - Patient Information Date Seen:: 06/20/19 Time Seen:: 01:20 Chief Complaint:: bleeding from nose History of Present Illness:: Patient picked a pimple on his nose which started to bleed. Allergies:: Allergies Allergy/AdvReac Type Severity Reaction Status Date / Time No Known Allergies Allergy Verified 09/10/18 13:56 Vitals:: Vital Signs - 8 hr 06/20/19 01:05 Temp 97.2 F HR 94 RR 19 BP 130/70 O2 Sat % 96 Historian:: Patient Review:: Nurse's Note Reviewed ED Review of Systems - Review of Systems General/Constitutional: No fever, No chills Skin: Skin lesions Head: No headache Eyes: No loss of vision ENT: No earache Neck: No neck pain Cardio Vascular: No chest pain, No palpitations Pulmonary: No SOB GI: No nausea, No vomiting, No diarrhea Musculoskeletal: No bone or joint pain Endocrine: No polyuria Psychiatric: No prior psych history ED Past Medical History - Past Medical History Past Medical History: No significant medical hx Family History: None Social History: Smoker, Alcohol Surgical History: None Family Medical History - Family Member Mother History Unknown: Yes Ethnicity: Non- Hx Family Cancer: No Hx Family Coronary Artery Disease: No Hx Family Congestive Heart Failure: No Hx Family Hypertension: No Hx Family Stroke: No Hx Family Diabetes: No Hx Family Seizures: No Hx Family Dementia: No Hx Family AIDS: No Hx Family HIV: No Hx Family COPD: No Hx Family Hepatitis: No Hx Family Psychiatric Problems: No Hx Family Tuberculosis: No ED Physical Exam - Physical Examination General/Constitutional: Alert, No distress Other Gen/Cons comments:: Disheveled Head: Atraumatic Eyes: Lids, conjuctiva normal Skin: Nl inspection, No rash ENMT: External ears, nose nl Other ENMT comments:: 1 cm of dried blood on the nose; no active bleeding; clear rhinorrhea from nares Neck: No nuchal rigidity Respiratory: Nl effort/Exclusion, Clear to Auscultation Cardio Vascular: RRR, No murmur, gallop, rubs, NL S1 S2 GI: No tenderness/rebounding/guarding, No organomegaly, No hernia : No CVA tenderness Extremities: No tenderness or effusion Neuro/Psych: No focal deficits Misc: Normal back ED Septic Shock - . Is Septic Shock (SBP<90, OR Lactate>4 mmol\L) present?: No - <6hrs of presentation: Vital Signs: Vital Signs - 8 hr 06/20/19 01:05 Temp 97.2 F HR 94 RR 19 BP 130/70 O2 Sat % 96 ED Reassessment (Disposition) - Reassessment Reassessment Condition:: Unchanged - Diagnosis Diagnosis:: Abrasion nose - Aftercare/Follow up Instructions Aftercare/Follow-Up Instructions:: Refer to Discharge Instructions - Patient Disposition Discharge/Transfer:: Home Condition at Disposition:: Stable, Unchanged
[2019-06-20] MEDS ORDERED: Sodium Chloride 0.9% 1,000 ML IV ONE (10:49)
[2019-06-20 11:20] LABS: HEMATOCRIT 32.2 % (41.0-60); HEMOGLOBIN 11.1 gm/dL (12-16); MEAN CELL VOLUME 97.4 fl (80-99); MEAN CORPUSCULAR HEMOGLOBIN 33.6 pg (26.0-30.0); MEAN CORPUSCULAR HGB CONC 34.5 pg (28.0-36.0); RED BLOOD COUNT 3.31 Mil/cmm (4.30-5.70); RED CELL DISTRIBUTION WIDTH 12.6 % (11.5-20.0); WHITE BLOOD COUNT 6.4 Th/cmm (4.8-10.8)
[2019-06-20 11:25] LABS: PLATELET COUNT 26 Th/cmm (150-400)
[2019-06-20 11:29] LABS: ALB/GLOB RATIO 1.1 (1.0-1.8); ALBUMIN 3.7 gm/dL (4.2-5.5); ALKALINE PHOSPHATASE 70 U/L (34-104); ANION GAP 14.3 (7.0-16.0); BILIRUBIN,TOTAL 2.8 mg/dL (0.3-1.0); BUN - UREA NITROGEN 19 mg/dL (7-25); CALCIUM SERUM 9.6 mg/dL (8.6-10.3); CARBON DIOXIDE 21.9 mEq/L (21.0-31.0); CHLORIDE 100 mEq/L (98-107); CHOLESTEROL 146 mg/dL (<200); CREATININE KINASE 1589 U/L (30-223); GFR AFRICAN-AMERICAN > 60.0 ml/min (>90); GFR NON AFRICAN-AMERICAN > 60.0 ml/min; GLUCOSE 96 mg/dL (70-105); HDL -HIGH DENSITY LIPOPROTEIN 60 mg/dL (23-92); POTASSIUM SERUM 3.2 mEq/L (3.5-5.1); SGOT 80 U/L (13-39); SGPT/ALT 44 U/L (7-52); SODIUM SERUM 133 mEq/L (136-145); TOTAL PROTEIN,SERUM 7.1 gm/dL (6.0-8.3); TRIGLYCERIDES 107 mg/dL (<150)
[2019-06-20 11:30] LABS: INR 1.13 (0.5-1.4)
[2019-06-20 11:45] LABS: BAND NEUTROPHILE 1 % (0-10); BASOPHIL 0 % (0-3); EOSINOPHIL 2 % (0-5); LYMPHOCYTE 18 % (20-50); MONOCYTE 13 % (2-10); NEUTROPHILS 66 % (40-80); PLATELET ESTIMATE DECREASED PLATELETS (NORMAL)
[2019-06-20] MEDS ORDERED: Potassium Chloride 20 mEq ER Tab PO ONE ×2 (12:00→12:06)
--- NOTE | 2019-06-20 12:53 | Diagnostic Imaging Report ---
CT scan of the brain without intravenous contrast HISTORY: Headache, trauma Total DLP equals 653 CTDI equals 37.5 Axial sections were obtained from the base of the skull to the vertex. There is marked enlargement of the ventricular system size. Associated enlargement of cerebral sulci and subarachnoid cisterns. Findings are consistent with changes of generalized cerebral atrophy. No acute parenchymal abnormalities. No acute cerebral hemorrhage. Hypodensity is seen within the supratentorial white matter regions without mass effect. The findings may be associated with chronic small vessel ischemic disease. No extra-axial masses or abnormal fluid collections. Mild mucosal thickening noted about the maxillary sinuses. IMPRESSION: 1. No acute abnormalities 2. Cerebral atrophy 3. Supratentorial white matter changes that may reflect chronic small vessel ischemic disease 4. Mild mucosal thickening about the maxillary sinuses
--- NOTE | 2019-06-20 12:54 | Diagnostic Imaging Report ---
CT scan cervical spine HISTORY: Pain, trauma Total DLP equals 406 CTDI equals 18.2 Axial sections were obtained to the cervical spine. Additional sagittal and coronal reformatted images are provided. Alignment is normal. Disc spaces are maintained. Small spur formation noted about the endplates of C3, C4, C5, and to lesser degree C6. No significant extradural abnormalities. No acute bony abnormalities. No fractures. Prevertebral soft tissues appear normal. Atherosclerotic calcification seen within the carotid artery regions bilaterally. IMPRESSION: 1. No acute focal bony abnormalities 2. Mild degenerative changes 3. Atherosclerotic vascular changes
[2019-06-20 15:33] VITALS: BP 156/69
[2019-06-20] MEDS ORDERED: Maalox 30 mL Cup PO PRN (15:46)
[2019-06-20] MEDS ORDERED: guaiFENesin 200 MG/10 ML UDC PO PRN (15:46)
[2019-06-20] MEDS: D5-0.9%NS 1,000 ML IV SCH (16:37)
[2019-06-20] MEDS: Ipratropium Neb 0.5 mg/2.5 mL UD IH SCH (19:17)
[2019-06-20] MEDS: Albuterol Nebulizer 2.5mg/3mL HHN SCH (19:17)
--- NOTE | 2019-06-20 20:15 | History & Physical ---
ADMIT DATE: 06/20/2019 CHIEF COMPLAINT: Unable to walk, ___ weak and multiple falls. HISTORY OF PRESENT ILLNESS: The patient is a 58-year-old male with history of alcohol abuse and homelessness, admitted after being seen initially on 06/17/2019 secondary to confusion and secondary to alcohol abuse. The patient was able to discharge at that time. The patient now comes back to the ER complaining of being weak, initially wanted something to eat in the ER, but unable to stand on his own. There is a question whether he fell. The patient is being admitted for further management. The patient is denying falling at this time. PAST MEDICAL HISTORY: As mentioned in history present illness. PAST SURGICAL HISTORY: Denies surgeries in the past. ALLERGIES: No known drug allergies. MEDICATIONS: None. FAMILY HISTORY: Denies. SOCIAL HISTORY: Avid drinker. Does not smoke. No drugs. REVIEW OF SYSTEMS: GENERAL: Complains not feeling well. HEENT: Head atraumatic. No blurred vision or pain. LUNGS: No diagnosis of COPD or asthma. HEART: Denies hypertension, but the patient was with elevated blood pressure. ABDOMEN: No nausea, vomiting or pain. Denies cirrhosis or hepatitis. NEUROLOGIC: No headache, seizure or syncope. PSYCHIATRIC: The patient denying this at this time. PHYSICAL EXAMINATION: VITAL SIGNS: Blood pressure 156/69, respirations 19, pulse 86, temperature 100.4. Elderly male, appears older. NECK: Supple. No mass. LUNGS: Equal breath sounds, few rhonchi. HEART: Regular rate and rhythm without clear murmur. ABDOMEN: Soft, globular. EXTREMITIES: Positive excoriation. NEUROLOGIC: There is limited movement in all 4 extremities. Gait not seen. LABORATORY DATA: WBC 6.4, hemoglobin 11, platelets 26. INR 1.1. Sodium 133, potassium 3.2, BUN 19, creatinine 1.0. AST and ALT 80 and 44 respectively, creatine kinase at 1500. ASSESSMENT AND PLAN: Generalized weakness status post fall, alcohol abuse, thrombocytopenia, anemia, hypokalemia, hyponatremia. We will correct electrolyte abnormalities. Overnight we will monitor the patient's platelets, any sign of blood loss or bleeding. Hold off on plateletpheresis. Social service has been consulted as well as ____. We will continue to monitor. JOB# [id number]
[2019-06-21] MEDS: D5-0.9%NS 1,000 ML IV SCH (05:46)
[2019-06-21 06:37] LABS: % BASOPHILS 0.5 % (0.0-2.0); % LYMPHOCYTES 23.3 % (20.0-50.0); % MONOCYTES 14.2 % (2.0-10.0); EOSINOPHILE ABSOLUTE 0.1 Th/cmm (0.1-0.4); HEMATOCRIT 32.9 % (41.0-60); HEMOGLOBIN 11.2 gm/dL (12-16); LYMPHOCYTE ABSOLUTE 1.4 Th/cmm (1.5-3.0); MEAN CELL VOLUME 98.9 fl (80-99); MEAN CORPUSCULAR HEMOGLOBIN 33.7 pg (26.0-30.0); MEAN CORPUSCULAR HGB CONC 34.1 pg (28.0-36.0); MONOCYTE ABSOLUTE 0.9 Th/cmm (0.3-1.0); NEUTROPHILE ABSOLUTE 3.6 Th/cmm (1.8-8.0); PLATELET COUNT 32 Th/cmm (150-400); RED BLOOD COUNT 3.32 Mil/cmm (4.30-5.70); RED CELL DISTRIBUTION WIDTH 12.4 % (11.5-20.0)
[2019-06-21 06:51] LABS: ANION GAP 13.3 (7.0-16.0); BUN - UREA NITROGEN 16 mg/dL (7-25); CALCIUM SERUM 9.2 mg/dL (8.6-10.3); CARBON DIOXIDE 20.6 mEq/L (21.0-31.0); CHLORIDE 101 mEq/L (98-107); CREATININE - SERUM 0.6 mg/dL (0.7-1.3); GFR AFRICAN-AMERICAN > 60.0 ml/min (>90); GFR NON AFRICAN-AMERICAN > 60.0 ml/min; GLUCOSE 111 mg/dL (70-105); SODIUM SERUM 132 mEq/L (136-145)
[2019-06-21 06:58] LABS: POTASSIUM SERUM 2.9 mEq/L (3.5-5.1)
[2019-06-21] MEDS: Albuterol Nebulizer 2.5mg/3mL HHN SCH ×4 (07:43→18:26)
[2019-06-21] MEDS: Ipratropium Neb 0.5 mg/2.5 mL UD IH SCH ×4 (07:43→18:26)
[2019-06-21] MEDS ORDERED: Potassium Chloride 20 mEq ER Tab PO ONE (08:18)
--- NOTE | 2019-06-21 09:02 | Internal Medicine Prog Note ---
Internal Medicine Subjective - Subjective Patient seen and examined:: with staff, chart reviewed Patient is:: awake, verbal, interactive, in bed Patient Complaints of:: congestion, unable to sleep Per staff patient has:: no adverse event, eating well, unstable gait, tolerating meds Internal Medicine Objective - Results Result Diagrams: 06/21/19 06:24 06/21/19 06:24 Recent Labs: Laboratory Last Values WBC 6.0 Th/cmm (4.8-10.8) 06/21/19 06:24 RBC 3.32 Mil/cmm (4.30-5.70) L 06/21/19 06:24 Hgb 11.2 gm/dL (12-16) L 06/21/19 06:24 Hct 32.9 % (41.0-60) L 06/21/19 06:24 MCV 98.9 fl (80-99) 06/21/19 06:24 MCH 33.7 pg (26.0-30.0) H 06/21/19 06:24 MCHC Differential 34.1 pg (28.0-36.0) 06/21/19 06:24 RDW 12.4 % (11.5-20.0) 06/21/19 06:24 Plt Count 32 Th/cmm (150-400) L 06/21/19 06:24 MPV 10.0 fl 06/21/19 06:24 Add Manual Diff YES 06/20/19 11:00 Neutrophils % 60.0 % (40.0-80.0) 06/21/19 06:24 Band Neutrophils % 1 % (0-10) 06/20/19 11:00 Lymphocytes % 23.3 % (20.0-50.0) 06/21/19 06:24 Monocytes % 14.2 % (2.0-10.0) H 06/21/19 06:24 Eosinophils % 2.0 % (0.0-5.0) 06/21/19 06:24 Basophils % 0.5 % (0.0-2.0) 06/21/19 06:24 Neutrophils (Manual) 66 % (40-80) 06/20/19 11:00 Lymphocytes 18 % (20-50) L 06/20/19 11:00 Monocytes 13 % (2-10) H 06/20/19 11:00 Eosinophils 2 % (0-5) 06/20/19 11:00 Basophils 0 % (0-3) 06/20/19 11:00 Platelet Estimate DECREASED PLATELETS (NORMAL) 06/20/19 11:00 PT 11.6 SECONDS (9.5-11.5) H 06/20/19 11:00 INR 1.13 (0.5-1.4) 06/20/19 11:00 Sodium 132 mEq/L (136-145) L 06/21/19 06:24 Potassium 2.9 mEq/L (3.5-5.1) L* 06/21/19 06:24 Chloride 101 mEq/L (98-107) 06/21/19 06:24 Carbon Dioxide 20.6 mEq/L (21.0-31.0) L 06/21/19 06:24 Anion Gap 13.3 (7.0-16.0) 06/21/19 06:24 BUN 16 mg/dL (7-25) 06/21/19 06:24 Creatinine 0.6 mg/dL (0.7-1.3) L 06/21/19 06:24 Est GFR ( Amer) > 60.0 ml/min (>90) 06/21/19 06:24 Est GFR (Non-Af Amer) > 60.0 ml/min 06/21/19 06:24 BUN/Creatinine Ratio 26.7 06/21/19 06:24 Glucose 111 mg/dL (70-105) H 06/21/19 06:24 Calcium 9.2 mg/dL (8.6-10.3) 06/21/19 06:24 Total Bilirubin 2.8 mg/dL (0.3-1.0) H 06/20/19 11:00 AST 80 U/L (13-39) H 06/20/19 11:00 ALT 44 U/L (7-52) 06/20/19 11:00 Alkaline Phosphatase 70 U/L (34-104) 06/20/19 11:00 Ammonia 65 umol/L (16-53) H 06/21/19 06:24 Creatine Kinase 1589 U/L (30-223) H 06/20/19 11:00 CK-MB (CK-2) 5.6 ng/mL (0.6-6.3) 06/20/19 11:00 Troponin I 0.01 ng/mL (0.01-0.05) 06/20/19 11:00 B-Natriuretic Peptide 80.3 pg/mL (5.0-100.0) 06/20/19 11:00 Total Protein 7.1 gm/dL (6.0-8.3) 06/20/19 11:00 Albumin 3.7 gm/dL (4.2-5.5) L 06/20/19 11:00 Globulin 3.4 gm/dL 06/20/19 11:00 Albumin/Globulin Ratio 1.1 (1.0-1.8) 06/20/19 11:00 Triglycerides 107 mg/dL (<150) 06/20/19 11:00 Cholesterol 146 mg/dL (<200) 06/20/19 11:00 LDL Cholesterol Direct 52 mg/dL (75-193) L 06/20/19 11:00 HDL Cholesterol 60 mg/dL (23-92) 06/20/19 11:00 Ethyl Alcohol < 10 mg/dL (0-10) 06/20/19 11:00 Blood Type B NEGATIVE 06/20/19 12:56 Antibody Screen NEGATIVE 06/20/19 12:56 - Physical Exam Vitals and I&O: Vital Signs Temp 97.8 F 06/21/19 03:49 Pulse 70 06/21/19 07:46 Resp 18 06/21/19 07:46 BP 144/72 06/21/19 03:49 Pulse Ox 97 06/21/19 07:46 Intake & Output 06/20/19 06/21/19 06/21/19 18:59 06:59 18:59 Intake Total 950 1200 Output Total 300 Balance 650 1200 Weight (lbs) 58.967 kg 58.967 kg Intake: Intake, IV Amount 400 1000 D5-0.9%Ns 1,000 ml @ 100 1000 mls/hr IV .Q10H [facility] Rx#: [id number] Sodium Chloride 0.9% 1, 400 000 ml @ 125 mls/hr IV . Q8H ONE Rx#:[id number] Oral 550 200 Output: Urine 300 Other: # Voids 3 # Bowel Movements 1 Stool Characteristics Soft Weight Source Bedscale Bedscale Active Medications: Current Medications Acetaminophen (Tylenol) 650 mg PO Q4H PRN PRN Reason: Pain Or Fever above 101 Stop: 08/19/19 15:45 Al Hydrox/Mg Hydrox/Simethicone (Maalox) 30 ml PO Q6H PRN PRN Reason: Dyspepsia Stop: 08/19/19 15:45 Albuterol Sulfate (Albuterol 2.5mg/3ml Neb Ud) 2.5 mg HHN QIDRT [facility] Stop: 08/19/19 18:59 Last Admin: 06/21/19 07:43 Dose: 2.5 mg Chlordiazepoxide (Librium) 25 mg PO TID [facility]; Protocol Stop: 08/19/19 20:59 Last Admin: 06/20/19 20:14 Dose: 25 mg Guaifenesin (Robitussin) 200 mg PO Q4HR PRN PRN Reason: Cough or Congestion Stop: 08/19/19 15:45 Dextrose/Sodium Chloride (D5-0.9%Ns) 1,000 mls @ 100 mls/hr IV .Q10H [facility] Stop: 08/19/19 15:59 Last Admin: 06/21/19 05:46 Dose: 100 mls/hr Ipratropium [place] (Atrovent Neb 0.5mg/2.5ml) 0.5 mg IH QIDRT [facility] Stop: 08/19/19 18:59 Last Admin: 06/21/19 07:43 Dose: 0.5 mg Ondansetron HCl (Zofran) 4 mg IV Q8H PRN PRN Reason: Nausea / Vomiting Stop: 08/19/19 15:45 Zolpidem Tartrate (Ambien) 10 mg PO HS PRN PRN Reason: Insomnia Stop: 08/19/19 15:45 General: weak, alert HEENT: NC/AT, PERRLA, EOMI Neck: Supple, No JVD Lungs: CTAB Cardiovascular: RRR, Normal S1, Normal S2, without murmur Abdomen: soft, non-tender, thin, positive bowel sound Extremities: excoriation, contracture Neurological: no change, disorganized - Procedures Procedures: Procedures Procedure Code Date INJECT/INFUSE NEC 99.29 07/14/14 THER/PROPH/DIAG INJ, SC/IM 85901 04/11/08 Internal Medicine Assmt/Plan - Assessment Assessment: ASSESSMENT AND PLAN: Generalized weakness status post fall, alcohol abuse, thrombocytopenia, anemia, hypokalemia, hyponatremia. - Plan Plan: PLAN: We will correct electrolyte abnormalities. Overnight we will monitor the patient's platelets, any sign of blood loss or bleeding. Hold off on plateletpheresis. Social service has been consulted as well as __psych__. We will continue to monitor.
[2019-06-22] MEDS: D5-0.9%NS 1,000 ML IV SCH ×2 (05:50→18:04)
[2019-06-22 06:09] LABS: BASOPHILE ABSOLUTE 0.1 Th/cumm (0-0.2); EOSINOPHILE ABSOLUTE 0.2 Th/cmm (0.1-0.4); HEMATOCRIT 30.9 % (41.0-60); HEMOGLOBIN 10.6 gm/dL (12-16); LYMPHOCYTE ABSOLUTE 1.3 Th/cmm (1.5-3.0); MEAN CELL VOLUME 98.9 fl (80-99); MEAN CORPUSCULAR HEMOGLOBIN 33.8 pg (26.0-30.0); MEAN CORPUSCULAR HGB CONC 34.1 pg (28.0-36.0); MONOCYTE ABSOLUTE 0.9 Th/cmm (0.3-1.0); NEUTROPHILE ABSOLUTE 3.2 Th/cmm (1.8-8.0); PLATELET COUNT 51 Th/cmm (150-400); RED BLOOD COUNT 3.13 Mil/cmm (4.30-5.70); RED CELL DISTRIBUTION WIDTH 12.2 % (11.5-20.0); WHITE BLOOD COUNT 5.7 Th/cmm (4.8-10.8)
[2019-06-22 06:22] LABS: BUN - UREA NITROGEN 10 mg/dL (7-25); CALCIUM SERUM 9.1 mg/dL (8.6-10.3); CHLORIDE 103 mEq/L (98-107); CREATININE - SERUM 0.6 mg/dL (0.7-1.3); GFR AFRICAN-AMERICAN > 60.0 ml/min (>90); GFR NON AFRICAN-AMERICAN > 60.0 ml/min; GLUCOSE 96 mg/dL (70-105); MAGNESIUM 1.3 mg/dL (1.9-2.7); SODIUM SERUM 135 mEq/L (136-145)
[2019-06-22 07:22] LABS: BASOPHIL 2 % (0-3); EOSINOPHIL 5 % (0-5); LYMPHOCYTE 19 % (20-50); MONOCYTE 15 % (2-10); NEUTROPHILS 59 % (40-80); PLATELET ESTIMATE DECREASED PLATELETS (NORMAL)
[2019-06-22] MEDS: Albuterol Nebulizer 2.5mg/3mL HHN SCH ×4 (07:23→19:26)
[2019-06-22] MEDS: Ipratropium Neb 0.5 mg/2.5 mL UD IH SCH ×4 (07:23→19:26)
[2019-06-22] MEDS ORDERED: Mag Sulfate 2gm/50mL Premix 2 GM/50 ML BAG IV ONE (09:42)
[2019-06-22] MEDS ORDERED: Potassium Chloride 20 mEq ER Tab PO ONE (09:43)
--- NOTE | 2019-06-22 11:46 | Internal Medicine Prog Note ---
Internal Medicine Subjective - Subjective Patient seen and examined:: with staff, chart reviewed Patient is:: awake, verbal, interactive, in bed Patient Complaints of:: congestion, unable to sleep Per staff patient has:: no adverse event, eating well, unstable gait, tolerating meds Internal Medicine Objective - Results Result Diagrams: 06/22/19 05:54 06/22/19 05:54 Recent Labs: Laboratory Last Values WBC 5.7 Th/cmm (4.8-10.8) 06/22/19 05:54 RBC 3.13 Mil/cmm (4.30-5.70) L 06/22/19 05:54 Hgb 10.6 gm/dL (12-16) L 06/22/19 05:54 Hct 30.9 % (41.0-60) L 06/22/19 05:54 MCV 98.9 fl (80-99) 06/22/19 05:54 MCH 33.8 pg (26.0-30.0) H 06/22/19 05:54 MCHC Differential 34.1 pg (28.0-36.0) 06/22/19 05:54 RDW 12.2 % (11.5-20.0) 06/22/19 05:54 Plt Count 51 Th/cmm (150-400) L 06/22/19 05:54 MPV 9.1 fl 06/22/19 05:54 Add Manual Diff YES 06/22/19 05:54 Neutrophils % 60.0 % (40.0-80.0) 06/21/19 06:24 Band Neutrophils % 1 % (0-10) 06/20/19 11:00 Lymphocytes % 23.3 % (20.0-50.0) 06/21/19 06:24 Monocytes % 14.2 % (2.0-10.0) H 06/21/19 06:24 Eosinophils % 2.0 % (0.0-5.0) 06/21/19 06:24 Basophils % 0.5 % (0.0-2.0) 06/21/19 06:24 Neutrophils (Manual) 59 % (40-80) 06/22/19 05:54 Lymphocytes 19 % (20-50) L 06/22/19 05:54 Monocytes 15 % (2-10) H 06/22/19 05:54 Eosinophils 5 % (0-5) 06/22/19 05:54 Basophils 2 % (0-3) 06/22/19 05:54 Platelet Estimate DECREASED PLATELETS (NORMAL) 06/22/19 05:54 PT 11.6 SECONDS (9.5-11.5) H 06/20/19 11:00 INR 1.13 (0.5-1.4) 06/20/19 11:00 Sodium 135 mEq/L (136-145) L 06/22/19 05:54 Potassium 3.0 mEq/L (3.5-5.1) L 06/22/19 05:54 Chloride 103 mEq/L (98-107) 06/22/19 05:54 Carbon Dioxide 22.0 mEq/L (21.0-31.0) 06/22/19 05:54 Anion Gap 13.0 (7.0-16.0) 06/22/19 05:54 BUN 10 mg/dL (7-25) 06/22/19 05:54 Creatinine 0.6 mg/dL (0.7-1.3) L 06/22/19 05:54 Est GFR ( Amer) > 60.0 ml/min (>90) 06/22/19 05:54 Est GFR (Non-Af Amer) > 60.0 ml/min 06/22/19 05:54 BUN/Creatinine Ratio 16.7 06/22/19 05:54 Glucose 96 mg/dL (70-105) 06/22/19 05:54 Calcium 9.1 mg/dL (8.6-10.3) 06/22/19 05:54 Magnesium 1.3 mg/dL (1.9-2.7) L 06/22/19 05:54 Total Bilirubin 2.8 mg/dL (0.3-1.0) H 06/20/19 11:00 AST 80 U/L (13-39) H 06/20/19 11:00 ALT 44 U/L (7-52) 06/20/19 11:00 Alkaline Phosphatase 70 U/L (34-104) 06/20/19 11:00 Ammonia 65 umol/L (16-53) H 06/21/19 06:24 Creatine Kinase 1589 U/L (30-223) H 06/20/19 11:00 CK-MB (CK-2) 5.6 ng/mL (0.6-6.3) 06/20/19 11:00 Troponin I 0.01 ng/mL (0.01-0.05) 06/20/19 11:00 B-Natriuretic Peptide 141.0 pg/mL (5.0-100.0) H 06/22/19 05:54 Total Protein 7.1 gm/dL (6.0-8.3) 06/20/19 11:00 Albumin 3.7 gm/dL (4.2-5.5) L 06/20/19 11:00 Globulin 3.4 gm/dL 06/20/19 11:00 Albumin/Globulin Ratio 1.1 (1.0-1.8) 06/20/19 11:00 Triglycerides 107 mg/dL (<150) 06/20/19 11:00 Cholesterol 146 mg/dL (<200) 06/20/19 11:00 LDL Cholesterol Direct 52 mg/dL (75-193) L 06/20/19 11:00 HDL Cholesterol 60 mg/dL (23-92) 06/20/19 11:00 Ethyl Alcohol < 10 mg/dL (0-10) 06/20/19 11:00 Blood Type B NEGATIVE 06/20/19 12:56 Antibody Screen NEGATIVE 06/20/19 12:56 - Physical Exam Vitals and I&O: Vital Signs Temp 97.6 F 06/22/19 08:00 Pulse 78 06/22/19 11:26 Resp 20 06/22/19 11:26 BP 134/31 06/22/19 08:00 Pulse Ox 97 06/22/19 11:26 Intake & Output 06/21/19 06/22/19 06/22/19 18:59 06:59 18:59 Intake Total 1200 500 Balance 1200 500 Weight (lbs) 58.967 kg 58.967 kg Intake: Intake, IV Amount 1000 D5-0.9%Ns 1,000 ml @ 100 1000 mls/hr IV .Q10H [facility]CO[facility] Rx#: [id number] Oral 200 500 Other: # Voids 3 # Bowel Movements 1 Stool Characteristics Soft Soft Soft Weight Source Bedscale Bedscale Active Medications: Current Medications Acetaminophen (Tylenol) 650 mg PO Q4H PRN PRN Reason: Pain Or Fever above 101 Stop: 08/19/19 15:45 Al Hydrox/Mg Hydrox/Simethicone (Maalox) 30 ml PO Q6H PRN PRN Reason: Dyspepsia Stop: 08/19/19 15:45 Albuterol Sulfate (Albuterol 2.5mg/3ml Neb Ud) 2.5 mg HHN QIDRT [facility] Stop: 08/19/19 18:59 Last Admin: 06/22/19 11:26 Dose: 2.5 mg Chlordiazepoxide (Librium) 25 mg PO TID [facility]; Protocol Stop: 08/19/19 20:59 Last Admin: 06/22/19 09:50 Dose: 25 mg Guaifenesin (Robitussin) 200 mg PO Q4HR PRN PRN Reason: Cough or Congestion Stop: 08/19/19 15:45 Dextrose/Sodium Chloride (D5-0.9%Ns) 1,000 mls @ 100 mls/hr IV .Q10H [facility] Stop: 08/19/19 15:59 Last Admin: 06/22/19 05:50 Dose: 100 mls/hr Ipratropium [place] (Atrovent Neb 0.5mg/2.5ml) 0.5 mg IH QIDRT [facility] Stop: 08/19/19 18:59 Last Admin: 06/22/19 11:26 Dose: 0.5 mg Ondansetron HCl (Zofran) 4 mg IV Q8H PRN PRN Reason: Nausea / Vomiting Stop: 08/19/19 15:45 Permethrin (Elimite 5% Cream) 1 appl TP X1 ONE Stop: 06/22/19 11:46 Zolpidem Tartrate (Ambien) 10 mg PO HS PRN PRN Reason: Insomnia Stop: 08/19/19 15:45 General: weak, alert HEENT: NC/AT, PERRLA, EOMI Neck: Supple, No JVD Lungs: CTAB Cardiovascular: RRR, Normal S1, Normal S2, without murmur Abdomen: soft, non-tender, thin, positive bowel sound Extremities: excoriation, contracture Neurological: no change, disorganized - Procedures Procedures: Procedures Procedure Code Date INJECT/INFUSE NEC 99.29 07/14/14 THER/PROPH/DIAG INJ, SC/IM 52197 04/11/08 Internal Medicine Assmt/Plan - Assessment Assessment: ASSESSMENT AND PLAN: Generalized weakness status post fall, alcohol abuse, thrombocytopenia, anemia, hypokalemia, hyponatremia. - Plan Plan: PLAN: We will correct electrolyte abnormalities. Overnight we will monitor the patient's platelets, any sign of blood loss or bleeding. Hold off on plateletpheresis. Social service has been consulted as well as __psych__. We will continue to monitor. empiric elimite Nutritional Asmnt/Malnutr-PDOC - Dietary Evaluation Malnutrition Findings (Please click <Entered> for more info): Nutritional Asmnt/Malnutrition Start: 06/21/19 10: 44 Text: Status: Complete Freq: Protocol: Document 06/21/19 10:47 DAMON (Rec: 06/21/19 11:07 DAMON MCFARLAND- [email or web address]) Nutritional Asmnt/Malnutrition Patient General Information Nutritional Screening High Risk Diagnosis General weakness Pertinent Medical Hx/Surgical Hx alcohol abuse and homelessness Subjective Information Patient was admitted 06/17 for confusion/alcohol abuse, and was discharged. Came back to ER with weakness and wanting something to eat. Consult received for small skin tear right buttocks. Ate 35-100% of meals, intake appears to be improving. Current Diet Order/ Nutrition Support Regular Patient / S.O Not Indicated Pertinent Medications Maalox, Zofran Pertinent Labs (06/21) Na 132, K 2.9, AST 80, CK 1589, ALbumin 3.7 Nutritional Hx/Data Height 1.68 m Height (Calculated Centimeters) 167.6 Current Weight (lbs) 58.967 kg Weight (Calculated Kilograms) 59.0 Weight (Calculated Grams) 82008.0 [place] Body Weight 142 % [place] Body Weight 91 Body Mass Index (BMI) 20.9 Recent Weight Change No Weight Status Approriate GI Symptoms GI Symptoms None Last BM 06/21 x 1 Difficult in: None Food Allergies No Cultural/Ethnic/Buddhism Belief none indicated Usual diet at home regular (homeless) Skin Integrity/Comment: Yoly 14, rash upper chest, dyness bilateral feet soles, rash/reddened upper back, bilateral lower legs, buttocks Current %PO Fair (50-74%) Estimated Nutritional Goals BEE in Kcals: Using Current wt Calories/Kcals/Kg CBW 59kg 30-35 kcal/kg Kcals Calculated ~9860-9008 kcal/day Protein: Using Current wt Protein g/k-1.2 gm/kg Protein Calculated ~60-70gm/day Fluid: ml ~5747-0993 ml/day (1 ml/kcal) Nutritional Problem No current Nutrition Prob Problem Inadequate oral intake related to Etiology possible poor appetite aeb Signs/Symptoms: PO <50% of meals 1. Problem Problem altered nutrition related lab values related to Etiology electrolyte imbalance aeb Signs/Symptoms: K 2.9, Na 132 Intervention/Recommendation Comments 1. Continue regular diet as tolerated by patient. Encourage intake of high potassium foods (banana, orange juice, prune juice, milk, potatoes, tomatoes, etc) . If patient remains hyponatremic, consider fluid restriction. MD to replace lytes as needed. 2. If intake does not constistely stay >75% of meals , provide Ensure Enlive TID to supplement caloric intake. 3. Consider adding multivitamin and vitamin C to promote skin integrity. Expected Outcomes/Goals Expected Outcomes/Goals Adequate nutrition to meet >75 % estimated needs, improved labs, skin remains intact, weight maintenance or trend toward ideal body weight. F/U MR 06/24-06/26
[2019-06-23 04:37] LABS: HEMATOCRIT 29.8 % (41.0-60); HEMOGLOBIN 10.1 gm/dL (12-16); MEAN CELL VOLUME 98.7 fl (80-99); MEAN CORPUSCULAR HEMOGLOBIN 33.4 pg (26.0-30.0); MEAN CORPUSCULAR HGB CONC 33.9 pg (28.0-36.0); PLATELET COUNT 75 Th/cmm (150-400); RED BLOOD COUNT 3.02 Mil/cmm (4.30-5.70); RED CELL DISTRIBUTION WIDTH 12.4 % (11.5-20.0); WHITE BLOOD COUNT 5.6 Th/cmm (4.8-10.8)
[2019-06-23 05:24] LABS: ANION GAP 11.2 (7.0-16.0); BUN - UREA NITROGEN 8 mg/dL (7-25); CALCIUM SERUM 8.9 mg/dL (8.6-10.3); CARBON DIOXIDE 22.7 mEq/L (21.0-31.0); CHLORIDE 105 mEq/L (98-107); CREATININE - SERUM 0.6 mg/dL (0.7-1.3); GFR AFRICAN-AMERICAN > 60.0 ml/min (>90); GFR NON AFRICAN-AMERICAN > 60.0 ml/min; GLUCOSE 92 mg/dL (70-105); MAGNESIUM 1.6 mg/dL (1.9-2.7); SODIUM SERUM 136 mEq/L (136-145)
[2019-06-23 05:41] LABS: POTASSIUM SERUM 2.9 mEq/L (3.5-5.1)
[2019-06-23] MEDS: Ipratropium Neb 0.5 mg/2.5 mL UD IH SCH ×4 (07:14→18:48)
[2019-06-23] MEDS: Albuterol Nebulizer 2.5mg/3mL HHN SCH ×4 (07:14→18:47)
[2019-06-23 07:27] LABS: BAND NEUTROPHILE 1 % (0-10); BASOPHIL 0 % (0-3); EOSINOPHIL 2 % (0-5); LYMPHOCYTE 32 % (20-50); MONOCYTE 16 % (2-10); NEUTROPHILS 49 % (40-80); PLATELET ESTIMATE DECREASED PLATELETS (NORMAL)
[2019-06-23] MEDS: D5-0.9%NS 1,000 ML IV SCH ×2 (10:02→22:03)
[2019-06-23] MEDS ORDERED: Mag Sulfate 2gm/50mL Premix 2 GM/50 ML BAG IV ONE (13:01)
[2019-06-23] MEDS ORDERED: Potassium Chloride 20 mEq ER Tab PO ONE (13:01)
--- NOTE | 2019-06-23 14:53 | Internal Medicine Prog Note ---
Internal Medicine Subjective - Subjective Patient seen and examined:: with staff, chart reviewed Patient is:: awake, verbal, interactive, in bed Patient Complaints of:: congestion, unable to sleep Per staff patient has:: no adverse event, eating well, unstable gait, tolerating meds Internal Medicine Objective - Results Result Diagrams: 06/23/19 04:20 06/23/19 04:20 Recent Labs: Laboratory Last Values WBC 5.6 Th/cmm (4.8-10.8) 06/23/19 04:20 RBC 3.02 Mil/cmm (4.30-5.70) L 06/23/19 04:20 Hgb 10.1 gm/dL (12-16) L 06/23/19 04:20 Hct 29.8 % (41.0-60) L 06/23/19 04:20 MCV 98.7 fl (80-99) 06/23/19 04:20 MCH 33.4 pg (26.0-30.0) H 06/23/19 04:20 MCHC Differential 33.9 pg (28.0-36.0) 06/23/19 04:20 RDW 12.4 % (11.5-20.0) 06/23/19 04:20 Plt Count 75 Th/cmm (150-400) L 06/23/19 04:20 MPV 9.7 fl 06/23/19 04:20 Add Manual Diff YES 06/23/19 04:20 Neutrophils % 60.0 % (40.0-80.0) 06/21/19 06:24 Band Neutrophils % 1 % (0-10) 06/23/19 04:20 Lymphocytes % 23.3 % (20.0-50.0) 06/21/19 06:24 Monocytes % 14.2 % (2.0-10.0) H 06/21/19 06:24 Eosinophils % 2.0 % (0.0-5.0) 06/21/19 06:24 Basophils % 0.5 % (0.0-2.0) 06/21/19 06:24 Neutrophils (Manual) 49 % (40-80) 06/23/19 04:20 Lymphocytes 32 % (20-50) 06/23/19 04:20 Monocytes 16 % (2-10) H 06/23/19 04:20 Eosinophils 2 % (0-5) 06/23/19 04:20 Basophils 0 % (0-3) 06/23/19 04:20 Platelet Estimate DECREASED PLATELETS (NORMAL) 06/23/19 04:20 PT 11.6 SECONDS (9.5-11.5) H 06/20/19 11:00 INR 1.13 (0.5-1.4) 06/20/19 11:00 Sodium 136 mEq/L (136-145) 06/23/19 04:20 Potassium 2.9 mEq/L (3.5-5.1) L* 06/23/19 04:20 Chloride 105 mEq/L (98-107) 06/23/19 04:20 Carbon Dioxide 22.7 mEq/L (21.0-31.0) 06/23/19 04:20 Anion Gap 11.2 (7.0-16.0) 06/23/19 04:20 BUN 8 mg/dL (7-25) 06/23/19 04:20 Creatinine 0.6 mg/dL (0.7-1.3) L 06/23/19 04:20 Est GFR ( Amer) > 60.0 ml/min (>90) 06/23/19 04:20 Est GFR (Non-Af Amer) > 60.0 ml/min 06/23/19 04:20 BUN/Creatinine Ratio 13.3 06/23/19 04:20 Glucose 92 mg/dL (70-105) 06/23/19 04:20 Calcium 8.9 mg/dL (8.6-10.3) 06/23/19 04:20 Magnesium 1.6 mg/dL (1.9-2.7) L 06/23/19 04:20 Total Bilirubin 2.8 mg/dL (0.3-1.0) H 06/20/19 11:00 AST 80 U/L (13-39) H 06/20/19 11:00 ALT 44 U/L (7-52) 06/20/19 11:00 Alkaline Phosphatase 70 U/L (34-104) 06/20/19 11:00 Ammonia 65 umol/L (16-53) H 06/21/19 06:24 Creatine Kinase 1589 U/L (30-223) H 06/20/19 11:00 CK-MB (CK-2) 5.6 ng/mL (0.6-6.3) 06/20/19 11:00 Troponin I 0.01 ng/mL (0.01-0.05) 06/20/19 11:00 B-Natriuretic Peptide 141.0 pg/mL (5.0-100.0) H 06/22/19 05:54 Total Protein 7.1 gm/dL (6.0-8.3) 06/20/19 11:00 Albumin 3.7 gm/dL (4.2-5.5) L 06/20/19 11:00 Globulin 3.4 gm/dL 06/20/19 11:00 Albumin/Globulin Ratio 1.1 (1.0-1.8) 06/20/19 11:00 Triglycerides 107 mg/dL (<150) 06/20/19 11:00 Cholesterol 146 mg/dL (<200) 06/20/19 11:00 LDL Cholesterol Direct 52 mg/dL (75-193) L 06/20/19 11:00 HDL Cholesterol 60 mg/dL (23-92) 06/20/19 11:00 Ethyl Alcohol < 10 mg/dL (0-10) 06/20/19 11:00 Blood Type B NEGATIVE 06/20/19 12:56 Antibody Screen NEGATIVE 06/20/19 12:56 - Physical Exam Vitals and I&O: Vital Signs Temp 98.9 F 06/23/19 11:55 Pulse 59 06/23/19 11:55 Resp 19 06/23/19 11:55 BP 120/82 06/23/19 11:55 Pulse Ox 98 06/23/19 11:55 Intake & Output 06/22/19 06/23/19 06/23/19 18:59 06:59 18:59 Intake Total 1480 1300 Balance 1480 1300 Weight (lbs) 58.967 kg 58.967 kg Intake: Intake, IV Amount 1000 1000 D5-0.9%Ns 1,000 ml @ 100 1000 1000 mls/hr IV .Q10H [facility] Rx#: [id number] Oral 480 300 Other: # Voids 3 3 # Bowel Movements 0 0 Stool Characteristics Soft Soft Soft Weight Source Bedscale Bedscale Active Medications: Current Medications Acetaminophen (Tylenol) 650 mg PO Q4H PRN PRN Reason: Pain Or Fever above 101 Stop: 08/19/19 15:45 Last Admin: 06/22/19 22:59 Dose: 650 mg Al Hydrox/Mg Hydrox/Simethicone (Maalox) 30 ml PO Q6H PRN PRN Reason: Dyspepsia Stop: 08/19/19 15:45 Albuterol Sulfate (Albuterol 2.5mg/3ml Neb Ud) 2.5 mg HHN QIDRT [facility] Stop: 08/19/19 18:59 Last Admin: 06/23/19 10:39 Dose: Not Given Chlordiazepoxide (Librium) 25 mg PO TID [facility]; Protocol Stop: 08/19/19 20:59 Last Admin: 06/23/19 14:00 Dose: 25 mg Ciprofloxacin (Cipro 0.3% [facility]) 1 drop EACH EYE TID [facility] Stop: 08/22/19 13:59 Last Admin: 06/23/19 14:00 Dose: 1 drop Guaifenesin (Robitussin) 200 mg PO Q4HR PRN PRN Reason: Cough or Congestion Stop: 08/19/19 15:45 Magnesium Sulfate (Magnesium Sulfate Premix) 2 gm in 50 mls @ 25 mls/hr IV X1 ONE Stop: 06/23/19 15:00 Last Admin: 06/23/19 13:57 Dose: 25 mls/hr Ipratropium [place] (Atrovent Neb 0.5mg/2.5ml) 0.5 mg IH QIDRT [facility] Stop: 08/19/19 18:59 Last Admin: 06/23/19 10:39 Dose: Not Given Ondansetron HCl (Zofran) 4 mg IV Q8H PRN PRN Reason: Nausea / Vomiting Stop: 08/19/19 15:45 Zolpidem Tartrate (Ambien) 10 mg PO HS PRN PRN Reason: Insomnia Stop: 08/19/19 15:45 General: weak, alert HEENT: NC/AT, PERRLA, EOMI Neck: Supple, No JVD Lungs: CTAB Cardiovascular: RRR, Normal S1, Normal S2, without murmur Abdomen: soft, non-tender, thin, positive bowel sound Extremities: excoriation, contracture Neurological: no change, disorganized - Procedures Procedures: Procedures Procedure Code Date INJECT/INFUSE NEC 99.29 07/14/14 THER/PROPH/DIAG INJ, SC/IM 01861 04/11/08 Internal Medicine Assmt/Plan - Assessment Assessment: ASSESSMENT AND PLAN: Generalized weakness status post fall, alcohol abuse, thrombocytopenia, anemia, hypokalemia, hyponatremia. - Plan Plan: PLAN: We will correct electrolyte abnormalities. Overnight we will monitor the patient's platelets, any sign of blood loss or bleeding. Hold off on plateletpheresis. Social service has been consulted as well as __psych__. We will continue to monitor. empiric elimite Nutritional Asmnt/Malnutr-PDOC - Dietary Evaluation Malnutrition Findings (Please click <Entered> for more info): Nutritional Asmnt/Malnutrition Start: 06/21/19 10: 44 Text: Status: Complete Freq: Protocol: Document 06/21/19 10:47 DAMON (Rec: 06/21/19 11:07 DAMON MCFARLAND- FNS1) Nutritional Asmnt/Malnutrition Patient General Information Nutritional Screening High Risk Diagnosis General weakness Pertinent Medical Hx/Surgical Hx alcohol abuse and homelessness Subjective Information Patient was admitted 06/17 for confusion/alcohol abuse, and was discharged. Came back to ER with weakness and wanting something to eat. Consult received for small skin tear right buttocks. Ate 35-100% of meals, intake appears to be improving. Current Diet Order/ Nutrition Support Regular Patient / S.O Not Indicated Pertinent Medications Maalox, Zofran Pertinent Labs (06/21) Na 132, K 2.9, AST 80, CK 1589, ALbumin 3.7 Nutritional Hx/Data Height 1.68 m Height (Calculated Centimeters) 167.6 Current Weight (lbs) 58.967 kg Weight (Calculated Kilograms) 59.0 Weight (Calculated Grams) 62900.0 [place] Body Weight 142 % [place] Body Weight 91 Body Mass Index (BMI) 20.9 Recent Weight Change No Weight Status Approriate GI Symptoms GI Symptoms None Last BM 06/21 x 1 Difficult in: None Food Allergies No Cultural/Ethnic/Temple Belief none indicated Usual diet at home regular (homeless) Skin Integrity/Comment: Yoly 14, rash upper chest, dyness bilateral feet soles, rash/reddened upper back, bilateral lower legs, buttocks Current %PO Fair (50-74%) Estimated Nutritional Goals BEE in Kcals: Using Current wt Calories/Kcals/Kg CBW 59kg 30-35 kcal/kg Kcals Calculated ~0159-8204 kcal/day Protein: Using Current wt Protein g/k-1.2 gm/kg Protein Calculated ~60-70gm/day Fluid: ml ~8914-3626 ml/day (1 ml/kcal) Nutritional Problem No current Nutrition Prob Problem Inadequate oral intake related to Etiology possible poor appetite aeb Signs/Symptoms: PO <50% of meals 1. Problem Problem altered nutrition related lab values related to Etiology electrolyte imbalance aeb Signs/Symptoms: K 2.9, Na 132 Intervention/Recommendation Comments 1. Continue regular diet as tolerated by patient. Encourage intake of high potassium foods (banana, orange juice, prune juice, milk, potatoes, tomatoes, etc) . If patient remains hyponatremic, consider fluid restriction. MD to replace lytes as needed. 2. If intake does not constistely stay >75% of meals , provide Ensure Enlive TID to supplement caloric intake. 3. Consider adding multivitamin and vitamin C to promote skin integrity. Expected Outcomes/Goals Expected Outcomes/Goals Adequate nutrition to meet >75 % estimated needs, improved labs, skin remains intact, weight maintenance or trend toward ideal body weight. F/U MR 06/24-06/26
[2019-06-24 05:16] LABS: FOLIC ACID 10.3 ng/mL (>3.0)
[2019-06-24] MEDS: Albuterol Nebulizer 2.5mg/3mL HHN SCH ×4 (06:59→19:32)
[2019-06-24] MEDS: Ipratropium Neb 0.5 mg/2.5 mL UD IH SCH ×4 (06:59→19:33)
--- NOTE | 2019-06-24 12:43 | Internal Medicine Prog Note ---
Internal Medicine Subjective - Subjective Patient seen and examined:: with staff, chart reviewed Patient is:: awake, verbal, interactive, in bed Patient Complaints of:: congestion, unable to sleep Per staff patient has:: no adverse event, eating well, unstable gait, tolerating meds Internal Medicine Objective - Results Result Diagrams: 06/23/19 04:20 06/23/19 04:20 Recent Labs: Laboratory Last Values WBC 5.6 Th/cmm (4.8-10.8) 06/23/19 04:20 RBC 3.02 Mil/cmm (4.30-5.70) L 06/23/19 04:20 Hgb 10.1 gm/dL (12-16) L 06/23/19 04:20 Hct 29.8 % (41.0-60) L 06/23/19 04:20 MCV 98.7 fl (80-99) 06/23/19 04:20 MCH 33.4 pg (26.0-30.0) H 06/23/19 04:20 MCHC Differential 33.9 pg (28.0-36.0) 06/23/19 04:20 RDW 12.4 % (11.5-20.0) 06/23/19 04:20 Plt Count 75 Th/cmm (150-400) L 06/23/19 04:20 MPV 9.7 fl 06/23/19 04:20 Add Manual Diff YES 06/23/19 04:20 Neutrophils % 60.0 % (40.0-80.0) 06/21/19 06:24 Band Neutrophils % 1 % (0-10) 06/23/19 04:20 Lymphocytes % 23.3 % (20.0-50.0) 06/21/19 06:24 Monocytes % 14.2 % (2.0-10.0) H 06/21/19 06:24 Eosinophils % 2.0 % (0.0-5.0) 06/21/19 06:24 Basophils % 0.5 % (0.0-2.0) 06/21/19 06:24 Neutrophils (Manual) 49 % (40-80) 06/23/19 04:20 Lymphocytes 32 % (20-50) 06/23/19 04:20 Monocytes 16 % (2-10) H 06/23/19 04:20 Eosinophils 2 % (0-5) 06/23/19 04:20 Basophils 0 % (0-3) 06/23/19 04:20 Platelet Estimate DECREASED PLATELETS (NORMAL) 06/23/19 04:20 PT 11.6 SECONDS (9.5-11.5) H 06/20/19 11:00 INR 1.13 (0.5-1.4) 06/20/19 11:00 Sodium 136 mEq/L (136-145) 06/23/19 04:20 Potassium 2.9 mEq/L (3.5-5.1) L* 06/23/19 04:20 Chloride 105 mEq/L (98-107) 06/23/19 04:20 Carbon Dioxide 22.7 mEq/L (21.0-31.0) 06/23/19 04:20 Anion Gap 11.2 (7.0-16.0) 06/23/19 04:20 BUN 8 mg/dL (7-25) 06/23/19 04:20 Creatinine 0.6 mg/dL (0.7-1.3) L 06/23/19 04:20 Est GFR ( Amer) > 60.0 ml/min (>90) 06/23/19 04:20 Est GFR (Non-Af Amer) > 60.0 ml/min 06/23/19 04:20 BUN/Creatinine Ratio 13.3 06/23/19 04:20 Glucose 92 mg/dL (70-105) 06/23/19 04:20 Calcium 8.9 mg/dL (8.6-10.3) 06/23/19 04:20 Magnesium 1.6 mg/dL (1.9-2.7) L 06/23/19 04:20 Total Bilirubin 2.8 mg/dL (0.3-1.0) H 06/20/19 11:00 AST 80 U/L (13-39) H 06/20/19 11:00 ALT 44 U/L (7-52) 06/20/19 11:00 Alkaline Phosphatase 70 U/L (34-104) 06/20/19 11:00 Ammonia 65 umol/L (16-53) H 06/21/19 06:24 Creatine Kinase 1589 U/L (30-223) H 06/20/19 11:00 CK-MB (CK-2) 5.6 ng/mL (0.6-6.3) 06/20/19 11:00 Troponin I 0.01 ng/mL (0.01-0.05) 06/20/19 11:00 B-Natriuretic Peptide 141.0 pg/mL (5.0-100.0) H 06/22/19 05:54 Total Protein 7.1 gm/dL (6.0-8.3) 06/20/19 11:00 Albumin 3.7 gm/dL (4.2-5.5) L 06/20/19 11:00 Globulin 3.4 gm/dL 06/20/19 11:00 Albumin/Globulin Ratio 1.1 (1.0-1.8) 06/20/19 11:00 Triglycerides 107 mg/dL (<150) 06/20/19 11:00 Cholesterol 146 mg/dL (<200) 06/20/19 11:00 LDL Cholesterol Direct 52 mg/dL (75-193) L 06/20/19 11:00 HDL Cholesterol 60 mg/dL (23-92) 06/20/19 11:00 Vitamin B12 584 pg/mL (232-1245) 06/21/19 06:24 Folic Acid 10.3 ng/mL (>3.0) 06/21/19 06:24 Ethyl Alcohol < 10 mg/dL (0-10) 06/20/19 11:00 Blood Type B NEGATIVE 06/20/19 12:56 Antibody Screen NEGATIVE 06/20/19 12:56 - Physical Exam Vitals and I&O: Vital Signs Temp 97.3 F 06/24/19 11:19 Pulse 73 06/24/19 11:19 Resp 18 06/24/19 11:19 BP 98/55 06/24/19 11:19 Pulse Ox 95 06/24/19 11:19 Intake & Output 06/23/19 06/24/19 06/24/19 18:59 06:59 18:59 Intake Total 600 Balance 600 Weight (lbs) 58.967 kg Intake: Oral 600 Other: # Voids 3 # Bowel Movements 0 Stool Characteristics Soft Weight Source Bedscale Active Medications: Current Medications Acetaminophen (Tylenol) 650 mg PO Q4H PRN PRN Reason: Pain Or Fever above 101 Stop: 08/19/19 15:45 Last Admin: 06/22/19 22:59 Dose: 650 mg Al Hydrox/Mg Hydrox/Simethicone (Maalox) 30 ml PO Q6H PRN PRN Reason: Dyspepsia Stop: 08/19/19 15:45 Albuterol Sulfate (Albuterol 2.5mg/3ml Neb Ud) 2.5 mg HHN QIDRT [facility] Stop: 08/19/19 18:59 Last Admin: 06/24/19 10:52 Dose: Not Given Chlordiazepoxide (Librium) 25 mg PO TID [facility]; Protocol Stop: 08/19/19 20:59 Last Admin: 06/24/19 09:41 Dose: 25 mg Ciprofloxacin (Cipro 0.3% Ophth Soln) 1 drop EACH EYE TID [facility] Stop: 08/22/19 13:59 Last Admin: 06/24/19 09:41 Dose: 1 drop Guaifenesin (Robitussin) 200 mg PO Q4HR PRN PRN Reason: Cough or Congestion Stop: 08/19/19 15:45 Dextrose/Sodium Chloride (D5-0.9%Ns) 1,000 mls @ 70 mls/hr IV .[id number] [facility] Stop: 08/22/19 14:59 Last Admin: 06/23/19 22:03 Dose: 70 mls/hr Ipratropium [place] (Atrovent Neb 0.5mg/2.5ml) 0.5 mg IH QIDRT [facility] Stop: 08/19/19 18:59 Last Admin: 06/24/19 10:53 Dose: Not Given Ondansetron HCl (Zofran) 4 mg IV Q8H PRN PRN Reason: Nausea / Vomiting Stop: 08/19/19 15:45 Zolpidem Tartrate (Ambien) 10 mg PO HS PRN PRN Reason: Insomnia Stop: 08/19/19 15:45 General: weak, alert HEENT: NC/AT, PERRLA, EOMI Neck: Supple, No JVD Lungs: CTAB Cardiovascular: RRR, Normal S1, Normal S2, without murmur Abdomen: soft, non-tender, thin, positive bowel sound Extremities: excoriation, contracture Neurological: no change, disorganized - Procedures Procedures: Procedures Procedure Code Date INJECT/INFUSE NEC 99.29 07/14/14 THER/PROPH/DIAG INJ, [place]/IM 50566 04/11/08 Internal Medicine Assmt/Plan - Assessment Assessment: ASSESSMENT AND PLAN: Generalized weakness status post fall, alcohol abuse, thrombocytopenia, anemia, hypokalemia, hyponatremia. - Plan Plan: PLAN: We will correct electrolyte abnormalities. Overnight we will monitor the patient's platelets, any sign of blood loss or bleeding. Hold off on plateletpheresis. Social service has been consulted as well as __psych__. We will continue to monitor. empiric elimite Nutritional Asmnt/Malnutr-PDOC - Dietary Evaluation Malnutrition Findings (Please click <Entered> for more info): Nutritional Asmnt/Malnutrition Start: 06/21/19 10: 44 Text: Status: Complete Freq: Protocol: Document 06/21/19 10:47 DAMON (Rec: 06/21/19 11:07 DAMON MCFARLAND- FNS1) Nutritional Asmnt/Malnutrition Patient General Information Nutritional Screening High Risk Diagnosis General weakness Pertinent Medical Hx/Surgical Hx alcohol abuse and homelessness Subjective Information Patient was admitted 06/17 for confusion/alcohol abuse, and was discharged. Came back to ER with weakness and wanting something to eat. Consult received for small skin tear right buttocks. Ate 35-100% of meals, intake appears to be improving. Current Diet Order/ Nutrition Support Regular Patient / S.O Not Indicated Pertinent Medications Maalox, Zofran Pertinent Labs (06/21) Na 132, K 2.9, AST 80, CK 1589, ALbumin 3.7 Nutritional Hx/Data Height 1.68 m Height (Calculated Centimeters) 167.6 Current Weight (lbs) 58.967 kg Weight (Calculated Kilograms) 59.0 Weight (Calculated Grams) 51673.0 [place] Body Weight 142 % [place] Body Weight 91 Body Mass Index (BMI) 20.9 Recent Weight Change No Weight Status Approriate GI Symptoms GI Symptoms None Last BM 06/21 x 1 Difficult in: None Food Allergies No Cultural/Ethnic/Zoroastrian Belief none indicated Usual diet at home regular (homeless) Skin Integrity/Comment: Yoly 14, rash upper chest, dyness bilateral feet soles, rash/reddened upper back, bilateral lower legs, buttocks Current %PO Fair (50-74%) Estimated Nutritional Goals BEE in Kcals: Using Current wt Calories/Kcals/Kg CBW 59kg 30-35 kcal/kg Kcals Calculated ~6342-3481 kcal/day Protein: Using Current wt Protein g/k-1.2 gm/kg Protein Calculated ~60-70gm/day Fluid: ml ~1791-3303 ml/day (1 ml/kcal) Nutritional Problem No current Nutrition Prob Problem Inadequate oral intake related to Etiology possible poor appetite aeb Signs/Symptoms: PO <50% of meals 1. Problem Problem altered nutrition related lab values related to Etiology electrolyte imbalance aeb Signs/Symptoms: K 2.9, Na 132 Intervention/Recommendation Comments 1. Continue regular diet as tolerated by patient. Encourage intake of high potassium foods (banana, orange juice, prune juice, milk, potatoes, tomatoes, etc) . If patient remains hyponatremic, consider fluid restriction. MD to replace lytes as needed. 2. If intake does not constistely stay >75% of meals , provide Ensure Enlive TID to supplement caloric intake. 3. Consider adding multivitamin and vitamin C to promote skin integrity. Expected Outcomes/Goals Expected Outcomes/Goals Adequate nutrition to meet >75 % estimated needs, improved labs, skin remains intact, weight maintenance or trend toward ideal body weight. F/U MR 06/24-06/26
[2019-06-24] MEDS ORDERED: Potassium Chloride 40 MEQ, Lidocaine 1% 20mL Vial 25 MG in Sodium Chloride 0.9% 250 ML IV ONE (13:30)
[2019-06-24] MEDS: D5-0.9%NS 1,000 ML IV SCH (19:04)
[2019-06-25 04:32] LABS: BASOPHILE ABSOLUTE 0.1 Th/cumm (0-0.2); EOSINOPHILE ABSOLUTE 0.2 Th/cmm (0.1-0.4); HEMATOCRIT 29.9 % (41.0-60); LYMPHOCYTE ABSOLUTE 1.8 Th/cmm (1.5-3.0); MEAN CORPUSCULAR HEMOGLOBIN 33.4 pg (26.0-30.0); MEAN CORPUSCULAR HGB CONC 33.4 pg (28.0-36.0); MONOCYTE ABSOLUTE 1.2 Th/cmm (0.3-1.0); NEUTROPHILE ABSOLUTE 2.7 Th/cmm (1.8-8.0); PLATELET COUNT 133 Th/cmm (150-400); RED BLOOD COUNT 2.99 Mil/cmm (4.30-5.70); RED CELL DISTRIBUTION WIDTH 12.6 % (11.5-20.0)
[2019-06-25 05:15] LABS: ANION GAP 11.1 (7.0-16.0); BUN - UREA NITROGEN 8 mg/dL (7-25); CARBON DIOXIDE 23.1 mEq/L (21.0-31.0); CHLORIDE 104 mEq/L (98-107); CREATININE - SERUM 0.5 mg/dL (0.7-1.3); GFR AFRICAN-AMERICAN > 60.0 ml/min (>90); GFR NON AFRICAN-AMERICAN > 60.0 ml/min; GLUCOSE 106 mg/dL (70-105); POTASSIUM SERUM 3.2 mEq/L (3.5-5.1); SODIUM SERUM 135 mEq/L (136-145)
[2019-06-25 05:18] LABS: BAND NEUTROPHILE 0 % (0-10); BASOPHIL 0 % (0-3); EOSINOPHIL 0 % (0-5); LYMPHOCYTE 35 % (20-50); MONOCYTE 17 % (2-10); NEUTROPHILS 48 % (40-80)
[2019-06-25 05:19] LABS: PLATELET ESTIMATE DECREASED PLATELETS (NORMAL)
[2019-06-25] MEDS: Ipratropium Neb 0.5 mg/2.5 mL UD IH SCH ×3 (07:43→15:37)
[2019-06-25] MEDS: Albuterol Nebulizer 2.5mg/3mL HHN SCH ×3 (07:43→15:37)
[2019-06-25] MEDS: D5-0.9%NS 1,000 ML IV SCH (08:36)
[2019-06-25] MEDS ORDERED: Potassium Chloride 20 mEq ER Tab PO ONE (12:40)
--- NOTE | 2019-06-25 12:41 | Internal Medicine Prog Note ---
Internal Medicine Subjective - Subjective Patient seen and examined:: with staff, chart reviewed Patient is:: awake, verbal, interactive, in bed Patient Complaints of:: congestion, unable to sleep Per staff patient has:: no adverse event, eating well, unstable gait, tolerating meds Internal Medicine Objective - Results Result Diagrams: 06/25/19 04:20 06/25/19 04:20 Recent Labs: Laboratory Last Values WBC 6.0 Th/cmm (4.8-10.8) 06/25/19 04:20 RBC 2.99 Mil/cmm (4.30-5.70) L 06/25/19 04:20 Hgb 10.0 gm/dL (12-16) L 06/25/19 04:20 Hct 29.9 % (41.0-60) L 06/25/19 04:20 MCV 100.0 fl (80-99) H 06/25/19 04:20 MCH 33.4 pg (26.0-30.0) H 06/25/19 04:20 MCHC Differential 33.4 pg (28.0-36.0) 06/25/19 04:20 RDW 12.6 % (11.5-20.0) 06/25/19 04:20 Plt Count 133 Th/cmm (150-400) L 06/25/19 04:20 MPV 9.5 fl 06/25/19 04:20 Add Manual Diff YES 06/25/19 04:20 Neutrophils % 60.0 % (40.0-80.0) 06/21/19 06:24 Band Neutrophils % 0 % (0-10) 06/25/19 04:20 Lymphocytes % 23.3 % (20.0-50.0) 06/21/19 06:24 Monocytes % 14.2 % (2.0-10.0) H 06/21/19 06:24 Eosinophils % 2.0 % (0.0-5.0) 06/21/19 06:24 Basophils % 0.5 % (0.0-2.0) 06/21/19 06:24 Neutrophils (Manual) 48 % (40-80) 06/25/19 04:20 Lymphocytes 35 % (20-50) 06/25/19 04:20 Monocytes 17 % (2-10) H 06/25/19 04:20 Eosinophils 0 % (0-5) 06/25/19 04:20 Basophils 0 % (0-3) 06/25/19 04:20 Platelet Estimate DECREASED PLATELETS (NORMAL) 06/25/19 04:20 PT 11.6 SECONDS (9.5-11.5) H 06/20/19 11:00 INR 1.13 (0.5-1.4) 06/20/19 11:00 Sodium 135 mEq/L (136-145) L 06/25/19 04:20 Potassium 3.2 mEq/L (3.5-5.1) L 06/25/19 04:20 Chloride 104 mEq/L (98-107) 06/25/19 04:20 Carbon Dioxide 23.1 mEq/L (21.0-31.0) 06/25/19 04:20 Anion Gap 11.1 (7.0-16.0) 06/25/19 04:20 BUN 8 mg/dL (7-25) 06/25/19 04:20 Creatinine 0.5 mg/dL (0.7-1.3) L 06/25/19 04:20 Est GFR ( Amer) > 60.0 ml/min (>90) 06/25/19 04:20 Est GFR (Non-Af Amer) > 60.0 ml/min 06/25/19 04:20 BUN/Creatinine Ratio 16.0 06/25/19 04:20 Glucose 106 mg/dL (70-105) H 06/25/19 04:20 Calcium 9.0 mg/dL (8.6-10.3) 06/25/19 04:20 Magnesium 1.6 mg/dL (1.9-2.7) L 06/23/19 04:20 Total Bilirubin 2.8 mg/dL (0.3-1.0) H 06/20/19 11:00 AST 80 U/L (13-39) H 06/20/19 11:00 ALT 44 U/L (7-52) 06/20/19 11:00 Alkaline Phosphatase 70 U/L (34-104) 06/20/19 11:00 Ammonia 65 umol/L (16-53) H 06/21/19 06:24 Creatine Kinase 1589 U/L (30-223) H 06/20/19 11:00 CK-MB (CK-2) 5.6 ng/mL (0.6-6.3) 06/20/19 11:00 Troponin I 0.01 ng/mL (0.01-0.05) 06/20/19 11:00 B-Natriuretic Peptide 141.0 pg/mL (5.0-100.0) H 06/22/19 05:54 Total Protein 7.1 gm/dL (6.0-8.3) 06/20/19 11:00 Albumin 3.7 gm/dL (4.2-5.5) L 06/20/19 11:00 Globulin 3.4 gm/dL 06/20/19 11:00 Albumin/Globulin Ratio 1.1 (1.0-1.8) 06/20/19 11:00 Triglycerides 107 mg/dL (<150) 06/20/19 11:00 Cholesterol 146 mg/dL (<200) 06/20/19 11:00 LDL Cholesterol Direct 52 mg/dL (75-193) L 06/20/19 11:00 HDL Cholesterol 60 mg/dL (23-92) 06/20/19 11:00 Vitamin B12 584 pg/mL (232-1245) 06/21/19 06:24 Folic Acid 10.3 ng/mL (>3.0) 06/21/19 06:24 Ethyl Alcohol < 10 mg/dL (0-10) 06/20/19 11:00 Blood Type B NEGATIVE 06/20/19 12:56 Antibody Screen NEGATIVE 06/20/19 12:56 - Physical Exam Vitals and I&O: Vital Signs Temp 99.6 F 06/25/19 08:00 Pulse 82 06/25/19 11:37 Resp 18 06/25/19 11:37 BP 148/64 06/25/19 08:00 Pulse Ox 97 06/25/19 11:37 Intake & Output 06/24/19 06/25/19 06/25/19 18:59 06:59 18:59 Intake Total 1600 250 947.333 Balance 1600 250 947.333 Weight (lbs) 58.967 kg 58.967 kg Intake: Intake, IV Amount 1000 947.333 D5-0.9%Ns 1,000 ml @ 70 1000 947.333 mls/hr IV .[id number] [facility] Rx #:[id number] Oral 600 250 Other: # Voids 3 3 # Bowel Movements 0 0 Stool Characteristics Soft Soft Weight Source Bedscale Bedscale Active Medications: Current Medications Acetaminophen (Tylenol) 650 mg PO Q4H PRN PRN Reason: Pain Or Fever above 101 Stop: 08/19/19 15:45 Last Admin: 06/22/19 22:59 Dose: 650 mg Al Hydrox/Mg Hydrox/Simethicone (Maalox) 30 ml PO Q6H PRN PRN Reason: Dyspepsia Stop: 08/19/19 15:45 Albuterol Sulfate (Albuterol 2.5mg/3ml Neb Ud) 2.5 mg HHN QIDRT [facility] Stop: 08/19/19 18:59 Last Admin: 06/25/19 11:36 Dose: Not Given Chlordiazepoxide (Librium) 25 mg PO TID [facility]; Protocol Stop: 08/19/19 20:59 Last Admin: 06/25/19 08:36 Dose: 25 mg Ciprofloxacin (Cipro 0.3% Oph Sol) 1 drop EACH EYE TID [facility] Stop: 08/22/19 13:59 Last Admin: 06/25/19 08:36 Dose: 1 drop Guaifenesin (Robitussin) 200 mg PO Q4HR PRN PRN Reason: Cough or Congestion Stop: 08/19/19 15:45 Dextrose/Sodium Chloride (D5-0.9%Ns) 1,000 mls @ 70 mls/hr IV .[id number] [facility] Stop: 08/22/19 14:59 Last Admin: 06/25/19 08:36 Dose: 70 mls/hr Ipratropium [place] (Atrovent Neb 0.5mg/2.5ml) 0.5 mg IH QIDRT [facility] Stop: 08/19/19 18:59 Last Admin: 06/25/19 11:37 Dose: Not Given Ondansetron HCl (Zofran) 4 mg IV Q8H PRN PRN Reason: Nausea / Vomiting Stop: 08/19/19 15:45 Potassium Chloride (Klor-Con) 20 meq PO X1 ONE Stop: 06/25/19 12:41 Potassium Chloride (Klor-Con) 20 meq PO DAILY [facility] Stop: 08/25/19 08:59 Zolpidem Tartrate (Ambien) 10 mg PO HS PRN PRN Reason: Insomnia Stop: 08/19/19 15:45 General: weak, alert HEENT: NC/AT, PERRLA, EOMI Neck: Supple, No JVD Lungs: CTAB Cardiovascular: RRR, Normal S1, Normal S2, without murmur Abdomen: soft, non-tender, thin, positive bowel sound Extremities: excoriation, contracture Neurological: no change, disorganized - Procedures Procedures: Procedures Procedure Code Date INJECT/INFUSE NEC 99.29 07/14/14 THER/PROPH/DIAG INJ, SC/IM 80169 04/11/08 Internal Medicine Assmt/Plan - Assessment Assessment: ASSESSMENT AND PLAN: Generalized weakness status post fall, alcohol abuse, thrombocytopenia, anemia, hypokalemia, hyponatremia. - Plan Plan: PLAN: We will correct electrolyte abnormalities. Overnight we will monitor the patient's platelets, any sign of blood loss or bleeding. Hold off on plateletpheresis. Social service has been consulted as well as __psych__. We will continue to monitor. empiric elimite Nutritional Asmnt/Malnutr-PDOC - Dietary Evaluation Malnutrition Findings (Please click <Entered> for more info): Nutritional Asmnt/Malnutrition Start: 06/21/19 10: 44 Text: Status: Complete Freq: Protocol: Document 06/21/19 10:47 DAMON (Rec: 06/21/19 11:07 DAMON MCFARLAND- FNS1) Nutritional Asmnt/Malnutrition Patient General Information Nutritional Screening High Risk Diagnosis General weakness Pertinent Medical Hx/Surgical Hx alcohol abuse and homelessness Subjective Information Patient was admitted 06/17 for confusion/alcohol abuse, and was discharged. Came back to ER with weakness and wanting something to eat. Consult received for small skin tear right buttocks. Ate 35-100% of meals, intake appears to be improving. Current Diet Order/ Nutrition Support Regular Patient / S.O Not Indicated Pertinent Medications Maalox, Zofran Pertinent Labs (06/21) Na 132, K 2.9, AST 80, CK 1589, ALbumin 3.7 Nutritional Hx/Data Height 1.68 m Height (Calculated Centimeters) 167.6 Current Weight (lbs) 58.967 kg Weight (Calculated Kilograms) 59.0 Weight (Calculated Grams) 45877.0 [place] Body Weight 142 % [place] Body Weight 91 Body Mass Index (BMI) 20.9 Recent Weight Change No Weight Status Approriate GI Symptoms GI Symptoms None Last BM 06/21 x 1 Difficult in: None Food Allergies No Cultural/Ethnic/Zoroastrian Belief none indicated Usual diet at home regular (homeless) Skin Integrity/Comment: Yoly 14, rash upper chest, dyness bilateral feet soles, rash/reddened upper back, bilateral lower legs, buttocks Current %PO Fair (50-74%) Estimated Nutritional Goals BEE in Kcals: Using Current wt Calories/Kcals/Kg CBW 59kg 30-35 kcal/kg Kcals Calculated ~7070-8885 kcal/day Protein: Using Current wt Protein g/k-1.2 gm/kg Protein Calculated ~60-70gm/day Fluid: ml ~3142-8737 ml/day (1 ml/kcal) Nutritional Problem No current Nutrition Prob Problem Inadequate oral intake related to Etiology possible poor appetite aeb Signs/Symptoms: PO <50% of meals 1. Problem Problem altered nutrition related lab values related to Etiology electrolyte imbalance aeb Signs/Symptoms: K 2.9, Na 132 Intervention/Recommendation Comments 1. Continue regular diet as tolerated by patient. Encourage intake of high potassium foods (banana, orange juice, prune juice, milk, potatoes, tomatoes, etc) . If patient remains hyponatremic, consider fluid restriction. MD to replace lytes as needed. 2. If intake does not constistely stay >75% of meals , provide Ensure Enlive TID to supplement caloric intake. 3. Consider adding multivitamin and vitamin C to promote skin integrity. Expected Outcomes/Goals Expected Outcomes/Goals Adequate nutrition to meet >75 % estimated needs, improved labs, skin remains intact, weight maintenance or trend toward ideal body weight. F/U MR 06/24-06/26
[2019-06-26] MEDS ORDERED: Potassium Chloride 20 mEq ER Tab PO SCH (09:00)
--- NOTE | 2019-06-26 13:27 | Discharge Summary ---
DATE OF DISCHARGE: 06/25/2019 CHIEF COMPLAINT: Unable to walk and multiple falls. FINAL DIAGNOSES: Alcohol intoxification, alcohol abuse, generalized weakness, multiple falls, anemia, electrolyte abnormalities, and homelessness. HISTORY: This is a 58-year-old male with history of alcohol abuse, homelessness, admitted secondary to confusion and episode of fall. The patient admitted for further management. PHYSICAL EXAMINATION: VITAL SIGNS: Blood pressure 120/60, respirations 18, pulse 85, temperature . GENERAL: Elderly male, appears chronically ill. NECK: Supple. No mass. LUNGS: Equal breath sounds, few rhonchi. HEART: Regular rate and rhythm. Systolic without appreciable murmur. ABDOMEN: Soft, globular. EXTREMITIES: Positive excoriations. NEUROLOGIC: Limited. HOSPITAL COURSE: The patient was admitted to medical floor, given adequate IV hydration with banana bag. Given Librium, hydrated, then give a support. The patient was seen by physical therapy and recommended for the patient to go to half-way facility. CONDITION ON DISCHARGE: Fair. DISCHARGE INSTRUCTIONS: The patient to be admitted to half-way facility under the quality engineer medical device. JOB# [id number]
== END 2019-06-25 18:20 | DRG 426 ==
LOC: ER 00:58 → MSI 14:30
PROVIDERS: ADMIT Internal Medicine; ATTEND Internal Medicine
DX: E87.1 Hypo-osmolality and hyponatremia (principal); D69.6 Thrombocytopenia, unspecified; F10.129 Alcohol abuse with intoxication, unspecified; Y90.0 Blood alcohol level of less than 20 mg/100 ml; E87.6 Hypokalemia; D64.9 Anemia, unspecified; E88.09 Other disorders of plasma-protein metabolism, not elsewhere classified; F17.210 Nicotine dependence, cigarettes, uncomplicated; S00.31XA Abrasion of nose, initial encounter; X58.XXXA Exposure to other specified factors, initial encounter; Y93.89 Activity, other specified; Y92.89 Other specified places as the place of occurrence of the external cause; Y99.8 Other external cause status; Z59.0 Homelessness; R53.1 Weakness
CPT/HCPCS: 36415-UA; 70450-TC; 72125-TC; 80048-TC; 80053-TC; 80061-TC; 80320-TC; 82140-TC; 82550-TC; 82553; 82607-90; 82746-90; 83735-TC; 83880-TC; 84484-TC; 85007-TC; 85025-TC; 85610-TC; 86850-TC; 86900-TC; 86901-TC; 90779; 93005; 94640; 94760; 97530; J2001; J3475; J3480; J7030; J7042; J7613; X3904; Z7610